=== PATIENT | female | born 2000 | race Caucasian/White ===

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

== ENCOUNTER 2020-12-09 22:28 | Emergency (ER) | payer SELFPAY ==
[~2020-12-09] VITALS: Ht 167 cm; Wt 136.0 kg
[~2020-12-09 22:28] MED LIST changes: +ACHD5005 PO; +AZIT250T12 PO; -AZIT250T5 PO; +IBUP-2185 PO; -IBUP200C75 PO; -TRAM50TA2 PO; +TRM50T PO
[2020-12-09 22:50] VITALS: BP 145/104
--- NOTE | 2020-12-09 23:23 | ED Lower Extremity ---
General Chief Complaint: Trauma-Non Activation Stated Complaint: LEFT KNEE PAIN,FALL Nursing Triage Note: Patient fell in a puddle of coffee at [facility] striking the left knee on the ground Nursing Sepsis Screen: No Definite Risk Source: patient History of Present Illness Date Seen by Provider: Dec 09, 2020 Time Seen by Provider: 22:51 Initial Comments PT ARRIVES VIA POV STATES [facility], LANDING ON LEFT KNEE C/O PAIN IN LEFT KNEE NO OTHER INJURIES FROM THE INCIDENT NO PRIOR INJURY OR PROBLEMS WITH THIS KNEE HAS NOT TAKEN ANYTHING FOR PAIN OR APPLIED ICE, ETC. Location Injury Occurred: [facility] Allergies and Home Medications Allergies Coded Allergies: Penicillins (Verified Allergy, Mild, 08/05/09) Home Medications Azithromycin 250 Mg Tablet, 250 MG PO DAILY Prescribed by: CAIN SILVA on 11/26/16 0315 Hydrocodone Bit/Acetaminophen 1 Each Tablet, 1 EACH PO Q4H PRN for PAIN Prescribed by: MIRIAM CHASE on 03/08/17 1834 Ibuprofen 200 Mg Capsule, 600 MG PO PRN, (Reported) Patient Home Medication List Home Medication List Reviewed: Yes Review of Systems Constitutional: no symptoms reported Musculoskeletal: see HPI Skin: no symptoms reported Psychiatric/Neurological: No Symptoms Reported Past Wudptlr-Rstxpu-Fyrnzk Hx Past Med/Social Hx: Reviewed and Corrections made Patient Social History Alcohol Use: Denies Use Drug of Choice: NONE Smoking Status: Never a Smoker 2nd Hand Smoke Exposure: Yes Recent Infectious Disease Expo: No Recent Hopitalizations: No Immunizations Up To Date Tetanus Booster (TDap): Less than 5yrs PED Vaccines UTD: Yes Seasonal Allergies Seasonal Allergies: No Past Medical History Surgeries: Yes Adenoidectomy, Orthopedic, Tonsillectomy Respiratory: No Cardiac: No Neurological: No Last Menstrual Period: Nov 22, 2020 Reproductive Disorders: No Female Reproductive Disorders: Denies Gastrointestinal: No Musculoskeletal: No Endocrine: Yes (morbid obesity) Diabetes, Non-Insulin dep HEENT: No Cancer: No Psychosocial: No Integumentary: No Blood Disorders: No Adverse Reaction/Blood Tranf: No Family Medical History No Pertinent Family Hx Physical Exam Vital Signs Vital Signs - First Documented 12/09/20 22:50 Temp 36.1 Pulse 111 Resp 18 B/P (MAP) 145/104 (118) Pulse Ox 97 O2 Delivery Room Air Capillary Refill : Less Than 3 Seconds Height, Weight, BMI Height: 5'7.00" Weight: 270lbs. oz. 122.326340bx; 48.00 BMI Method:Stated General Appearance: WD/WN, no apparent distress, obese Cardiovascular: normal peripheral pulses Knees: right knee normal inspection; left knee bone tenderness, left knee pain, left knee soft tissue tenderness, left knee other (DIFFUSE TENDERNESS TO ANTERIOR ASPECT OF LEFT KNEE. NO BRUISING OR EXTERNAL EVIDENCE OF TRAUMA. UNABLE TO DETERMINE IF SWELLING IS PRESENT OR IF THERE IS LIGAMENT LAXITY DUE TO BODY HABITUS AND PAIN. ) Ankles: left ankle normal inspection Feet: left foot normal inspection Neurologic/Tendon: normal sensation, normal motor functions, normal tendon functions Neurologic/Psychiatric: no motor/sensory deficits, alert, normal mood/affect, oriented x 3 Skin: normal color, warm/dry Procedures/Interventions Splinting and Joint Reduction : Bonilla wrap: Yes Immobilizers: 24 inch Knee Progress/Results/Core Measures Results/Orders My Orders Orders - HUANG GABRIEL DO Knee, Left, 3 Views (12/09/20 22:57) Bonilla Bandage (12/09/20 23:20) Knee Immobilizer (12/09/20 23:20) Ibuprofen Tablet (Motrin Tablet) (12/09/20 23:30) Medications Given in ED Current Medications Medications Dose Ordered Sig/Per Route Start Time Stop Time Status Last Admin Dose Admin Ibuprofen 800 mg ONCE ONCE PO 12/09/20 23:30 12/09/20 23:31 DC 12/09/20 23:28 800 MG Vital Signs/I&O 12/09/20 22:50 Temp 36.1 Pulse 111 Resp 18 B/P (MAP) 145/104 (118) Pulse Ox 97 O2 Delivery Room Air Blood Pressure Mean: 118 Departure Impression Primary Impression: Contusion of left knee Disposition: HOME, SELF-CARE Condition: Stable Departure-Patient Inst. Referrals: NO,LOCAL PHYSICIAN (PCP/Family) Primary Care Physician Patient Instructions: Contusion (DC), How to Use an Elastic Bandage, Knee Immobilizer (DC) Add. Discharge Instructions: ICE TO SORE AREA AT 20 MINUTE INTERVALS BONILLA WRAP AND KNEE IMMOBILIZER FOR COMFORT ELEVATE LEG MUCH POSSIBLE TYLENOL 1 GRAM / MOTRIN 800 MG 4 TIMES A DAY NEEDED FOR PAIN FOLLOW UP WITH YOUR DR IN 1 WEEK FOR FURTHER CARE All discharge instructions reviewed with patient and/or family. Voiced understanding. HUANG GABRIEL DO Dec 09, 2020 23:23
--- NOTE | 2020-12-09 23:29 | NUR ---
Bonilla wrap applied to the left knee and knee immobilizer placed on left knee. Patient verbalizes comfort.
[2020-12-09] MEDS ORDERED: IBUPROFEN 800 MG (MOTRIN) TAB PO ONE (23:30)
--- NOTE | 2020-12-10 06:50 | Diagnostic Imaging Report ---
HISTORY: Left knee pain COMPARISON: None TECHNIQUE: 3 views of the left knee FINDINGS: No acute fracture or dislocation is seen in the left knee. Alignment appears normal. Joint spaces are preserved. No significant joint effusion is appreciated. IMPRESSION: 1. No acute osseous abnormality is seen in the left knee. Dictated by: Dictated on workstation # [id number]
== END 2020-12-09 23:42 | disposition home or self-care (01) ==
LOC: EDUNIT# 22:28 → ER 22:30
DX: S80.02XA Contusion of left knee, initial encounter (principal); E66.01 Morbid (severe) obesity due to excess calories; Z88.0 Allergy status to penicillin; Z77.22 Contact with and (suspected) exposure to environmental tobacco smoke (acute) (chronic); Z68.42 Body mass index [BMI] 45.0-49.9, adult; W01.0XXA Fall on same level from slipping, tripping and stumbling without subsequent striking against object, initial encounter
CPT/HCPCS: 73562

== ENCOUNTER 2021-07-02 21:52 | Emergency (ER) | payer SELFPAY ==
[~2021-07-02] VITALS: Ht 167 cm; Wt 142.0 kg
[2021-07-02 22:13] LABS: BILIRUBIN,URINE NEGATIVE (NEGATIVE); CLARITY,URINE SL CLOUDY; COLOR,URINE YELLOW; GLUCOSE, URINE (UA) 3+ (NEGATIVE); KETONES,URINE NEGATIVE (NEGATIVE); LEUKOCYTE ESTERASE ,URINE NEGATIVE (NEGATIVE); NITRITE,URINE NEGATIVE (NEGATIVE); PH,URINE 6.5 (5-9); PROTEIN,URINE NEGATIVE (NEGATIVE)
[2021-07-02 22:18] LABS: BACTERIA,URINE FEW /HPF; WBC,URINE RARE /HPF
[2021-07-02] MEDS ORDERED: ONDANSETRON 4 MG/2 ML (SDV) Z0FRAN IVP ONE (22:45)
[2021-07-02 22:55] LABS: BASOPHILS # (AUTO) 0.1 10^3/uL (0.0-0.1); BASOPHILS % (AUTO) 1 % (0-10); EOSINOPHILS # (AUTO) 0.3 10^3/uL (0.0-0.3); EOSINOPHILS % (AUTO) 2 % (0-10); HEMATOCRIT 44 % (35-52); HEMOGLOBIN 14.5 g/dL (11.5-16.0); LYMPHOCYTES % (AUTO) 33 % (12-44); MEAN CORPUSCULAR HEMOGLOBIN 27 pg (25-34); MEAN CORPUSCULAR HGB CONC 33 g/dL (32-36); MEAN CORPUSCULAR VOLUME 82 fL (80-99); MEAN PLATELET VOLUME 9.7 fL (9.0-12.2); MONOCYTES % (AUTO) 6 % (0-12); NEUTROPHILS # (AUTO) 8.6 10^3/uL (1.8-7.8); NEUTROPHILS % (AUTO) 57 % (42-75); PLATELET COUNT 469 10^3/uL (130-400); WHITE BLOOD COUNT 15.1 10^3/uL (4.3-11.0)
--- NOTE | 2021-07-02 22:59 | ED Abdominal Pain ---
General Chief Complaint: Abdominal/GI Problems Stated Complaint: SIDE PAIN, LOWER BACK PAIN Source of Information: Patient, Family Exam Limitations: No Limitations (ROSA XIE,MED STUDENT) History of Present Illness Date Seen by Provider: Jul 02, 2021 Time Seen by Provider: 21:58 Initial Comments Lauren Youngblood is a 21yo F with PMH of DMII who presents with CC of abdominal pain. She states that last night she was exercising when she noticed a sharp pain located in her right lateral abdomen. She laid down which alleviated the pain, but it was aggravated when she stood up again. She spent most of today resting, but after driving and exiting her car found herself experiencing severe pain while walking. She rates it as 7/10 and has not tried any home treatment. She has never had this type of pain before. She denies V/D, but endorses constipation and nausea. Timing/Duration: 1 Day Severity/Quality: Severe, Sharp Location: RUQ, RLQ Radiation: Back Activities at Onset: Activity Modifying Factors: Worsens With Exercise; Improves With Lying down; Worsens With Movement; Improves With Resting Associated Symptoms: No Chest Pain, No Diaphoresis, No Fever/Chills, No Headache; Nausea/Vomiting (nausea) (ROSA XIE,MED STUDENT) Allergies and Home Medications Allergies Coded Allergies: Penicillins (Verified Allergy, Mild, 08/05/09) Home Medications Azithromycin 250 Mg Tablet, 250 MG PO DAILY Prescribed by: CAIN SILVA on 11/26/16 0315 Hydrocodone Bit/Acetaminophen 1 Each Tablet, 1 EACH PO Q4H PRN for PAIN Prescribed by: MIRIAM CHASE on 03/08/17 1834 Ibuprofen 200 Mg Capsule, 600 MG PO PRN, (Reported) Ondansetron 4 Mg Tab.rapdis, 4 MG SL Q4H PRN for NAUSEA/VOMITING Prescribed by: CAIN SILVA on 07/03/21 0324 Patient Home Medication List Home Medication List Reviewed: Yes (CAIN GAITAN MD) Review of Systems Review of Systems Constitutional: no symptoms reported EENTM: No Symptoms Reported Respiratory: No Symptoms Reported Cardiovascular: No Symptoms Reported Gastrointestinal: See HPI Genitourinary: No Symptoms Reported Musculoskeletal: no symptoms reported Skin: no symptoms reported Psychiatric/Neurological: No Symptoms Reported Endocrine: No Symptoms Reported Hematologic/Lymphatic: No Symptoms Reported (ROSA XIE,PAU STUDENT) Past Oqnsahe-Vrnbjr-Vtpodl Hx Immunizations Up To Date Tetanus Booster (TDap): Less than 5yrs PED Vaccines UTD: Yes (ROSA XIE,PAU STUDENT) Seasonal Allergies Seasonal Allergies: No (ROSA XIE MED STUDENT) Past Medical History Surgeries: Yes Adenoidectomy, Orthopedic, Tonsillectomy Respiratory: No Cardiac: No Neurological: No Reproductive Disorders: No Female Reproductive Disorders: Denies Gastrointestinal: No Musculoskeletal: No Endocrine: Yes (morbid obesity) Diabetes, Non-Insulin dep HEENT: No Cancer: No Psychosocial: No Integumentary: No Blood Disorders: No Adverse Reaction/Blood Tranf: No (ROSA XIE,PAU STUDENT) Family Medical History No Pertinent Family Hx (ROSA XIE,PAU STUDENT) Physical Exam Vital Signs Vital Signs - First Documented 07/02/21 07/03/21 22:08 03:15 Temp 37.0 Pulse 84 Resp 20 B/P (MAP) 142/102 (115) Pulse Ox 97 O2 Delivery Room Air (CAIN GAITAN MD) Vital Signs Capillary Refill : (ROSA XIE,PAU STUDENT) Height/Weight/BMI Height: 5'7.00" Weight: 270lbs. oz. 122.440187tu; 48.00 BMI Method:Stated General Appearance: moderate distress, obese HEENT: PERRL/EOMI Respiratory: lungs clear, normal breath sounds, no respiratory distress Cardiovascular: regular rate, rhythm Gastrointestinal: soft, guarding, tenderness (RUQ/RLQ) Extremities: normal range of motion Back: no CVA tenderness Neurologic/Psychiatric: alert, oriented x 3 Skin: normal color, warm/dry (ROSA XIE,PAU STUDENT) Progress/Results/Core Measures Results/Orders Lab Results Laboratory Tests Test 07/02/21 22:08 07/02/21 22:10 07/02/21 23:08 07/03/21 00:00 Range/Units Urine Color YELLOW Urine Clarity SL CLOUDY Urine pH 6.5 5-9 Urine Specific [place] 1.020 1.016-1.022 Urine Protein NEGATIVE NEGATIVE Urine Glucose (UA) 3+ H NEGATIVE Urine Ketones NEGATIVE NEGATIVE Urine Nitrite NEGATIVE NEGATIVE Urine Bilirubin NEGATIVE NEGATIVE Urine Urobilinogen 0.2 < = 1.0 MG/DL Urine Leukocyte Esterase NEGATIVE NEGATIVE Urine RBC (Auto) NEGATIVE NEGATIVE Urine RBC NONE /HPF Urine WBC RARE /HPF Urine Squamous Epithelial Cells 5-10 /HPF Urine Crystals NONE /LPF Urine Bacteria FEW H /HPF Urine Casts NONE /LPF Urine Mucus NEGATIVE /LPF Urine Culture Indicated NO White Blood Count 15.1 H 4.3-11.0 10^3/uL Red Blood Count 5.32 H 3.80-5.11 10^6/uL Hemoglobin 14.5 11.5-16.0 g/dL Hematocrit 44 35-52 % Mean Corpuscular Volume 82 80-99 fL Mean Corpuscular Hemoglobin 27 25-34 pg Mean Corpuscular Hemoglobin Concent 33 32-36 g/dL Red Cell Distribution Width 13.1 10.0-14.5 % Platelet Count 469 H 130-400 10^3/uL Mean Platelet Volume 9.7 9.0-12.2 fL Immature Granulocyte % (Auto) 1 % Neutrophils (%) (Auto) 57 42-75 % Lymphocytes (%) (Auto) 33 12-44 % Monocytes (%) (Auto) 6 0-12 % Eosinophils (%) (Auto) 2 0-10 % Basophils (%) (Auto) 1 0-10 % Neutrophils # (Auto) 8.6 H 1.8-7.8 10^3/uL Lymphocytes # (Auto) 5.0 H 1.0-4.0 10^3/uL Monocytes # (Auto) 1.0 0.0-1.0 10^3/uL Eosinophils # (Auto) 0.3 0.0-0.3 10^3/uL Basophils # (Auto) 0.1 0.0-0.1 10^3/uL Immature Granulocyte # (Auto) 0.1 0.0-0.1 10^3/uL Neutrophils % (Manual) 63 % Lymphocytes % (Manual) 29 % Monocytes % (Manual) 2 % Eosinophils % (Manual) 2 % Basophils % (Manual) 0 % Band Neutrophils 0 % Reactive Lymphocytes 4 % Blood Morphology Comment NORMAL Sodium Level 137 135-145 MMOL/L Potassium Level 4.2 3.6-5.0 MMOL/L Chloride Level 103 98-107 MMOL/L Carbon Dioxide Level 23 21-32 MMOL/L Anion Gap 11 5-14 MMOL/L Blood Urea Nitrogen 9 7-18 MG/DL Creatinine 0.82 0.60-1.30 MG/DL Estimat Glomerular Filtration Rate 87 BUN/Creatinine Ratio 11 Glucose Level 363 H 70-105 MG/DL Calcium Level 10.3 H 8.5-10.1 MG/DL Corrected Calcium 10.4 H 8.5-10.1 MG/DL Total Bilirubin 0.3 0.1-1.0 MG/DL Aspartate Amino Transf (AST/SGOT) 32 5-34 U/L Alanine Aminotransferase (ALT/SGPT) 46 0-55 U/L Alkaline Phosphatase 100 40-136 U/L C-Reactive Protein High Sensitivity 1.92 H 0.00-0.50 MG/DL Total Protein 7.9 6.4-8.2 GM/DL Albumin 3.9 3.2-4.5 GM/DL Serum Test, Qualitative NEGATIVE NEGATIVE Glucometer 348 H 70-110 MG/DL Lipase 25 8-78 U/L (CAIN GAITAN MD) My Orders Orders - CAIN GAITAN MD Ua Culture If Indicated (07/02/21 21:57) Ondansetron Injection (Zofran Injectio (07/02/21 22:45) Ed Iv/Invasive Line Start (07/02/21 22:49) Cbc With Automated Diff (07/02/21 22:49) Comprehensive Metabolic Panel (07/02/21 22:49) Hs C Reactive Protein (07/02/21 22:49) Hcg,Qualitative Serum (07/02/21 22:49) Fentanyl Inj (Sublimaze Injection) (07/02/21 23:00) Manual Differential (07/02/21 22:10) Ct Abdomen/Pelvis W (07/02/21 23:07) Ns Iv 1000 Ml (Sodium Chloride 0.9%) (07/02/21 23:15) Iohexol Injection (Omnipaque 350 Mg/Ml 1 (07/03/21 00:00) Received Contrast (Hold Metformin- Contr (07/03/21 00:00) Sodium Chloride Flush (Catheter Flush Sy (07/03/21 00:00) Ns (Ivpb) (Sodium Chloride 0.9% Ivpb Bag (07/03/21 00:00) Ketorolac Injection (Toradol Injection) (07/03/21 00:45) Promethazine Injection (Phenergan Injec (8/5/21 00:45) Lipase (07/03/21 02:24) (CAIN GAITAN MD) Medications Given in ED (CAIN GAITAN MD) Vital Signs/I&O 07/02/21 07/03/21 22:08 03:15 Temp 37.0 37.0 Pulse 84 78 Resp 20 20 B/P (MAP) 142/102 (115) 132/68 Pulse Ox 97 94 O2 Delivery Room Air (CAIN GAITAN MD) Departure Impression Primary Impression: Right ovarian cyst Additional Impressions: Nausea Right sided abdominal pain Leukocytosis Qualified Codes: D72.829 - Elevated white blood cell count, unspecified Disposition: 01 HOME, SELF-CARE Condition: Improved Departure-Patient Inst. Decision time for Depature: 03:22 (CAIN GAITAN MD) Referrals: NO,LOCAL PHYSICIAN (PCP/Family) Primary Care Physician Patient Instructions: Ovarian Cysts, Severe Abdominal Pain Add. Discharge Instructions: Drink plenty of clear liquids. Start with clear liquid diet and gradually advance your diet with small quantities of bland food as tolerated. You may take Tylenol (acetaminophen) up to 1000 mg every 6 hours as needed for pain. Add ibuprofen up to 600 mg every 6 hours as needed for additional pain relief. Use Zofran as prescribed for nausea and vomiting. Return to care if you have worsening symptoms, especially if you develop fevers over 100 degrees. Call with questions or concerns. All discharge instructions reviewed with patient and/or family. Voiced understanding. Scripts Ondansetron (Ondansetron Odt) 4 Mg Tab.rapdis 4 MG SL Q4H PRN for NAUSEA/VOMITING, #10 TAB Prov: CAIN GAITAN MD 07/03/21 Medical Student Attestation and Attending Note: I have personally interviewed and examined this patient along with Alan Xie MS4. I have reviewed student documentation including history, physical, and assessments. I agree with the documentation except where otherwise noted. Exam: General: Alert, oriented, no acute distress, well developed, obese HEENT: Normocephalic and atraumatic Heart: Regular rate and rhythm without murmur Lungs: Clear to auscultation bilaterally with normal effort Abdomen: Soft, ttp in the right abdomen with tenderness to percussion and positive Rovsing, nondistended, normal bowel sounds Neuropsych: Alert, oriented, no focal deficits Skin: Warm and dry without rashes Pain and nausea were treated. She received IV hydration. Labs revealed leukocytosis. In the context of leukocytosis and peritoneal signs, evaluation for appendicitis considered important. Risks and benefits of CT discussed with patient and mother. They agreed and CT was obtained. A large right ovarian cyst was discovered on CT. Discharge instructions were reviewed along with the expected course of this pathology. (CAIN GAITAN MD) ROSA XIE,MED STUDENT Jul 02, 2021 22:59 CAIN GAITAN MD Jul 03, 2021 03:24
[2021-07-02] MEDS ORDERED: fentaNYL INJ 100 MCG/2 ML AMP IVP ONE (23:00)
[2021-07-02 23:09] LABS: ALBUMIN 3.9 GM/DL (3.2-4.5); BILIRUBIN,TOTAL 0.3 MG/DL (0.1-1.0); CALCIUM 10.3 MG/DL (8.5-10.1); CREATININE SERUM 0.82 MG/DL (0.60-1.30); POTASSIUM 4.2 MMOL/L (3.6-5.0); TOTAL PROTEIN 7.9 GM/DL (6.4-8.2)
[2021-07-02 23:13] LABS: BAND NEUTROPHILS 0 %; BASOPHILS % (MANUAL) 0 %; EOSINOPHILS % (MANUAL) 2 %; LYMPHOCYTES % (MANUAL) 29 %; MONOCYTES % (MANUAL) 2 %; NEUTROPHILS % (MANUAL) 63 %; RBC MORPH NORMAL; REACTIVE LYMPHOCYTES 4 %
[2021-07-02] MEDS ORDERED: NS IV 1000 ML 1,000 ML IV SCH (23:15)
[2021-07-03] MEDS ORDERED: HOLD METFORMIN - RECEIVED CONTRAST 20 ML VIAL IV SCH
[2021-07-03] MEDS ORDERED: CATHETER FLUSH 10 ML SYR IV PRN
[2021-07-03] MEDS ORDERED: NS 100 ML (IVPB) BAG IV ONE
[2021-07-03] MEDS ORDERED: IOHEXOL 350 MG/ML 100 ML (OMNIPAQUE 350) VIAL IV ONE
[2021-07-03] MEDS ORDERED: PROMETHAZINE INJ 25 MG/ML (PHENERGAN) AMP IVP ONE (00:45)
[2021-07-03] MEDS ORDERED: KETOROLAC 30 MG/ML VIAL IVP ONE (00:45)
[2021-07-03 03:15] VITALS: BP 132/68
[2021-07-03] MEDS ORDERED: ONDA4TAB11 SL (03:24)
--- NOTE | 2021-07-03 07:54 | Diagnostic Imaging Report ---
PROCEDURE: CT abdomen and pelvis with contrast. TECHNIQUE: Multiple contiguous axial images were obtained through the abdomen and pelvis after administration of intravenous contrast. Auto Exposure Controls were utilized during the CT exam to meet ALARA standards for radiation dose reduction. All CT scans use one or more of the following dose optimizing techniques: automated exposure control, MA and/or KvP adjustment based on patient size and exam type or iterative reconstruction. INDICATION: Right flank pain x1 day Lung bases are clear. There is fatty infiltration of liver. The gallbladder is decompressed. The portal vein is patent. Common duct is not dilated. Pancreas appears normal. Spleen is not enlarged. Adrenals appear normal. Kidneys appear normal. The appendix appears normal. Small bowel is not dilated. There is large amount stool in the colon. Urinary bladder is normal. Uterus is normal. There is a 7 cm right ovarian cyst. Left adnexa unremarkable. There is no intraperitoneal free air or free fluid. IMPRESSION: Hepatic steatosis. 7 cm right ovarian cyst. I agree with preliminary interpretation. Dictated by: Dictated on workstation # [id number]
== END 2021-07-03 04:04 | disposition home or self-care (01) ==
LOC: EDUNIT# 21:52 → ER 21:54
DX: N83.201 Unspecified ovarian cyst, right side (principal); R11.0 Nausea; D72.829 Elevated white blood cell count, unspecified; E66.01 Morbid (severe) obesity due to excess calories; E11.9 Type 2 diabetes mellitus without complications; Z68.42 Body mass index [BMI] 45.0-49.9, adult
CPT/HCPCS: 36415; 74177; 80053; 81000; 82947; 83690; 84703; 85007; 85027; 86141

== ENCOUNTER 2021-07-07 18:09 | Emergency (ER) | payer SELFPAY ==
[~2021-07-07] VITALS: Ht 165.1 cm; Wt 102.0 kg
[~2021-07-07 18:09] MED LIST changes: +ONDA4TAB11 SL
[2021-07-07 18:17] VITALS: BP 164/108
[2021-07-07] MEDS ORDERED: IBUPROFEN 800 MG (MOTRIN) TAB PO STA (18:26)
--- NOTE | 2021-07-07 18:30 | ED Lower Extremity ---
General Stated Complaint: L ANKLE/FOOT INJ History of Present Illness Date Seen by Provider: Jul 07, 2021 Time Seen by Provider: 18:15 Initial Comments 21-year-old female presents for left foot and ankle pain. She stepped down on a pallet and her foot went through causing her to twist her foot and ankle. She is having pain along the lateral aspect of her left foot and up into the ankle. She reports previous injury to her left ankle which required a plate and screw in 2017. Onset: just prior to arrival Pain/Injury Location: left foot, left ankle Method of Injury: twisted, other (stepped down on a pallett and her foot went through) Modifying Factors: Improves With Rest Allergies and Home Medications Allergies Coded Allergies: Penicillins (Verified Allergy, Mild, 08/05/09) Home Medications Azithromycin 250 Mg Tablet, 250 MG PO DAILY Prescribed by: CAIN SILVA on 11/26/16 0315 Hydrocodone Bit/Acetaminophen 1 Each Tablet, 1 EACH PO Q4H PRN for PAIN Prescribed by: MIRIAM CHASE on 03/08/17 1834 Ibuprofen 200 Mg Capsule, 600 MG PO PRN, (Reported) Ondansetron 4 Mg Tab.rapdis, 4 MG SL Q4H PRN for NAUSEA/VOMITING Prescribed by: CAIN SILVA on 07/03/21 0324 Patient Home Medication List Home Medication List Reviewed: Yes Review of Systems Constitutional: no symptoms reported, see HPI Musculoskeletal: see HPI, joint pain (Left ankle and foot) All Other Systems Reviewed Negative Unless Noted: Yes Past Sxdndrd-Hqaqpj-Rkdaaa Hx Immunizations Up To Date Tetanus Booster (TDap): Less than 5yrs PED Vaccines UTD: Yes Seasonal Allergies Seasonal Allergies: No Past Medical History Surgeries: Yes Adenoidectomy, Orthopedic, Tonsillectomy Respiratory: No Cardiac: No Neurological: No Reproductive Disorders: No Female Reproductive Disorders: Denies Gastrointestinal: No Musculoskeletal: No Endocrine: Yes (morbid obesity) Diabetes, Non-Insulin dep HEENT: No Cancer: No Psychosocial: No Integumentary: No Blood Disorders: No Adverse Reaction/Blood Tranf: No Family Medical History Reviewed Nursing Family Hx No Pertinent Family Hx Physical Exam Vital Signs Vital Signs - First Documented 07/07/21 18:17 Pulse 99 Resp 20 B/P (MAP) 164/108 (126) Pulse Ox 99 O2 Delivery Room Air Capillary Refill : Height, Weight, BMI Height: 5'7.00" Weight: 270lbs. oz. 122.527321bm; 50.00 BMI Method:Stated General Appearance: WD/WN, no apparent distress, obese Cardiovascular: normal peripheral pulses, regular rate, rhythm Respiratory: chest non-tender, lungs clear, normal breath sounds Gastrointestinal: normal bowel sounds, non tender, soft Ankles: left ankle normal range of motion, left ankle bone tenderness, left ankle pain, left ankle soft tissue tenderness Feet: left foot normal inspection, left foot normal range of motion, left foot abrasions/lacerations (Superficial, lateral aspect), left foot bone tenderness (Fifth metatarsal), left foot soft tissue tenderness Neurologic/Tendon: normal sensation, normal motor functions, normal tendon functions Neurologic/Psychiatric: no motor/sensory deficits, alert, normal mood/affect, oriented x 3 Skin: normal color, warm/dry Progress/Results/Core Measures Results/Orders My Orders Orders - JOHNNA CHAHAL Foot, Left, 3 Views (07/07/21 18:26) Ankle, Left, 3 Views (07/07/21 18:26) Ibuprofen Tablet (Motrin Tablet) (07/07/21 18:26) Vital Signs/I&O 07/07/21 18:17 Pulse 99 Resp 20 B/P (MAP) 164/108 (126) Pulse Ox 99 O2 Delivery Room Air Progress Progress Note : Time: 18:15 Progress Note Patient seen and evaluated, will obtain x-ray of the left ankle and foot. Ice pack in place. Ibuprofen 800 mg for pain. 0 x-ray show no acute fractures, reviewed with patient. Abrasion to lateral aspect of the left foot cleaned with saline and triple antibiotic with Band-Aid applied. Bonilla wrap to left ankle and foot. Discharge instructions and return precautions reviewed with the patient and her mother. All questions answered. Diagnostic Imaging Diagonstic Imaging: Xray Plain Films/CT/US/NM/MRI: other (foot) Comments NAME: JOSE ESTRADA [facility] REC#: [id number] PT STATUS: REG ER : 2000 PHYSICIAN: JOHNNA CHAHAL ADMIT DATE: 07/07/21/ER Signed Date of Exam:07/07/21 FOOT, LEFT, 3 VIEWS INDICATION: Left foot injury Three views of the left foot show no fracture, dislocation or other acute abnormalities. IMPRESSION: Negative left foot. Dictated by: Dictated on workstation # [id number] Dict: 07/07/211841 Trans: 07/07/211846 [facility] [id number] Interpreted by: SHANNON MTZ MD Electronically signed by: SHANNON MTZ MD 07/07/211846 Diagonstic Imaging: Xray Plain Films/CT/US/NM/MRI: ankle Comments NAME: JOSE ESTRADA [facility] REC#: [id number] PT STATUS: REG ER : 2000 PHYSICIAN: JOHNNA CHAHAL ADMIT DATE: 07/07/21/ER Signed Date of Exam:07/07/21 FOOT, LEFT, 3 VIEWS INDICATION: Left foot injury Three views of the left foot show no fracture, dislocation or other acute abnormalities. IMPRESSION: Negative left foot. Dictated by: Dictated on workstation # [id number] Dict: 07/07/211841 Trans: 07/07/211846 [facility] [id number] Interpreted by: SHANNON MTZ MD Electronically signed by: SHANNON MTZ MD 07/07/211846 Reviewed: Reviewed by Me Departure Impression Primary Impression: Sprain or strain of foot Additional Impression: Contusion of foot Qualified Codes: S90.32XA - Contusion of left foot, initial encounter Disposition: 01 HOME, SELF-CARE Condition: Improved Departure-Patient Inst. Decision time for Depature: 19:00 Referrals: NO,LOCAL PHYSICIAN (PCP/Family) Primary Care Physician Patient Instructions: Ankle Sprain (DC), Contusion (DC) Add. Discharge Instructions: Ice and elevate left ankle and foot. Alternate between ibuprofen 600 mg and Tylenol 650 mg every 4 hours. Use Bonilla wrap. Clean abrasion to left foot with soap and water and apply triple antibiotic ointment 3 times daily. Progress activity as tolerated. Follow-up with your primary care provider if symptoms are not improving or worsen. Return to the emergency department for new, urgent healthcare needs. JOHNNA CHAHAL Jul 07, 2021 18:30
--- NOTE | 2021-07-07 18:44 | Diagnostic Imaging Report ---
INDICATION: Left ankle injury. Three views of the left ankle show postoperative changes from internal fixation of the lateral malleolus and distal tibiofibular joint. The screw crossing the distal joint is fractured and there is lucency suggesting there has been fracture for an extended period of time. The fibula appears to be well-healed. There is no acute fracture seen. IMPRESSION: Postoperative changes from internal fixation of the ankle. No acute abnormality is seen. Dictated by: Dictated on workstation # [id number]
--- NOTE | 2021-07-07 18:45 | Diagnostic Imaging Report ---
INDICATION: Left foot injury Three views of the left foot show no fracture, dislocation or other acute abnormalities. IMPRESSION: Negative left foot. Dictated by: Dictated on workstation # [id number]
== END 2021-07-07 19:10 | disposition home or self-care (01) ==
LOC: EDUNIT# 18:09 → ER 18:11
DX: S93.602A Unspecified sprain of left foot, initial encounter (principal); E11.9 Type 2 diabetes mellitus without complications; E66.01 Morbid (severe) obesity due to excess calories; Z68.43 Body mass index [BMI] 50.0-59.9, adult; X50.1XXA Overexertion from prolonged static or awkward postures, initial encounter
CPT/HCPCS: 73610; 73630

== ENCOUNTER 2022-03-14 23:57 | Observation (INO) | payer SELFPAY ==
[~2022-03-14] VITALS: Ht 165 cm; Wt 153.2 kg
[2022-03-15] VITALS (11 sets, daily range): BP systolic 120–150; BP diastolic 71–90
[2022-03-15] MEDS ORDERED: EMPA10TA PO (00:23)
[2022-03-15] MEDS ORDERED: ONDANSETRON 4 MG/2 ML (SDV) Z0FRAN IVP STA (00:35)
[2022-03-15] MEDS ORDERED: DICYCLOMINE 10 MG/ML (BENTYL) 2 ML AMP IM STA (00:35)
[2022-03-15] MEDS ORDERED: NS IV 1000 ML 1,000 ML IV STA (00:35)
[2022-03-15] MEDS ORDERED: fentaNYL INJ 100 MCG/2 ML AMP IVP STA (00:35)
--- NOTE | 2022-03-15 00:39 | ED Abdominal Pain ---
General Chief Complaint: Abdominal/GI Problems Stated Complaint: 4-5 WEEKS OF DIARRHEA,ABD PAIN,UPPER BACK PAIN Nursing Triage Note: c/o intermittant epigastric abdominal pain/nausea/diarrhea x3-4 weeks. Source of Information: Patient Exam Limitations: No Limitations History of Present Illness Date Seen by Provider: Mar 15, 2022 Time Seen by Provider: 00:26 Initial Comments Patient is a 22-year-old female who presents to the emergency department with a chief complaint of upper abdominal pain, nausea, vomiting and diarrhea. Patient states that her symptoms have been coming and going for at least the last 4 weeks. Her primary care physician initially attributed to metformin, she discontinued taking this about 2 weeks ago. Ever since that time every time she eats she has exacerbations of pain. The pain became even worse tonight after 630 around dinnertime when she ate pizza. She has spent all evening in the bathroom with diarrhea. She denies fevers or chills. No burning with urination. No abnormal vaginal discharge. She just finished her menstrual cycle. She denies black or bloody stools. Mom has a history of having her gallbladder out as well as her grandmother. Nothing makes the pain any better or any worse. She has not taken any pain medications since the onset of pain. Dinner was at 630, she has had nothing to eat or drink since that time All other review of systems reviewed and negative except as stated. Timing/Duration: 4-6 Hours Severity/Quality: Severe, Aching, Cramping, Sharp Location: RUQ, Epigastric Radiation: Back (upper) Activities at Onset: Other (food) Associated Symptoms: Back Pain, Nausea/Vomiting Allergies and Home Medications Allergies Coded Allergies: Penicillins (Verified Allergy, Mild, 08/05/09) Patient Home Medication List Home Medication List Reviewed: Yes Empagliflozin (Jardiance) 10 Mg Tablet, Unknown Dose PO, (Reported) Entered as Reported by: BABAK LI on 03/15/22 0023 Last Action: New Order Discontinued Medications Azithromycin (Azithromycin) 250 Mg Tablet, 250 MG PO DAILY Discontinued Reason: No Longer Taking Prescribed by: CAIN SILVA on 11/26/16 0315 Last Action: Discontinued Hydrocodone Bit/Acetaminophen (Lortab 5 Mg Tablet) 1 Each Tablet, 1 EACH PO Q4H PRN for PAIN Discontinued Reason: No Longer Taking Prescribed by: MIRIAM CHASE on 03/08/17 1834 Last Action: Discontinued Ibuprofen (Ibuprofen) 200 Mg Capsule, 600 MG PO PRN, (Reported) Discontinued Reason: No Longer Taking Entered as Reported by: JOHNNA BACON on 11/26/16 0014 Last Action: Discontinued Ondansetron (Ondansetron Odt) 4 Mg Tab.rapdis, 4 MG SL Q4H PRN for NAUSEA/VOMITING Discontinued Reason: No Longer Taking Prescribed by: CAIN SILVA on 07/03/21 0324 Last Action: Discontinued Review of Systems Review of Systems Constitutional: see HPI EENTM: No Symptoms Reported Respiratory: No Symptoms Reported Cardiovascular: No Symptoms Reported Gastrointestinal: Abdominal Pain, Diarrhea, Nausea, Vomiting Genitourinary: No Symptoms Reported Musculoskeletal: back pain (upper) Skin: no symptoms reported All Other Systems Reviewed Negative Unless Noted: Yes Past Lvdnhff-Mesjte-Cbrnct Hx Patient Social History Tobacco Use?: No Substance use?: No Alcohol Use?: No Pt feels they are or have been: No Immunizations Up To Date Tetanus Booster (TDap): Less than 5yrs PED Vaccines UTD: Yes Seasonal Allergies Seasonal Allergies: No Past Medical History Surgery/Hospitalization HX: appy, left ankle, t/a, niddm Surgeries: Yes Adenoidectomy, Orthopedic, Tonsillectomy Respiratory: No Cardiac: No Neurological: No Reproductive Disorders: No Female Reproductive Disorders: Denies Gastrointestinal: No Musculoskeletal: No Endocrine: Yes (morbid obesity) Diabetes, Non-Insulin dep HEENT: No Cancer: No Psychosocial: No Integumentary: No Blood Disorders: No Adverse Reaction/Blood Tranf: No Family Medical History No Pertinent Family Hx Physical Exam Vital Signs Vital Signs - First Documented 03/15/22 00:17 Temp 36.1 Pulse 104 Resp 18 B/P (MAP) 162/117 (132) Pulse Ox 98 O2 Delivery Room Air Capillary Refill : Less Than 3 Seconds Height/Weight/BMI Height: 5'7.00" Weight: 270lbs. oz. 122.864440wk; 53.00 BMI Method:Stated General Appearance: WD/WN, moderate distress (tearful, appears to be in pain) HEENT: PERRL/EOMI Respiratory: lungs clear, normal breath sounds, no respiratory distress, no accessory muscle use Cardiovascular: regular rate, rhythm, other (distal pulses intact) Gastrointestinal: soft, tenderness (significant tenderness epigastric and RUQ - positive Paez's sign; no rebound, no involuntary guarding. quiet bowel sounds), other (morbid obesity) Extremities: normal inspection Neurologic/Psychiatric: alert, normal mood/affect, oriented x 3 Skin: normal color, warm/dry Progress/Results/Core Measures Results/Orders Lab Results Laboratory Tests Test 03/15/22 00:43 Range/Units White Blood Count 13.7 H 4.3-11.0 10^3/uL Red Blood Count 5.21 H 3.80-5.11 10^6/uL Hemoglobin 13.7 11.5-16.0 g/dL Hematocrit 43 35-52 % Mean Corpuscular Volume 82 80-99 fL Mean Corpuscular Hemoglobin 26 25-34 pg Mean Corpuscular Hemoglobin Concent 32 32-36 g/dL Red Cell Distribution Width 13.8 10.0-14.5 % Platelet Count 450 H 130-400 10^3/uL Mean Platelet Volume 8.8 L 9.0-12.2 fL Immature Granulocyte % (Auto) 1 % Neutrophils (%) (Auto) 67 42-75 % Lymphocytes (%) (Auto) 23 12-44 % Monocytes (%) (Auto) 6 0-12 % Eosinophils (%) (Auto) 3 0-10 % Basophils (%) (Auto) 0 0-10 % Neutrophils # (Auto) 9.2 H 1.8-7.8 10^3/uL Lymphocytes # (Auto) 3.2 1.0-4.0 10^3/uL Monocytes # (Auto) 0.8 0.0-1.0 10^3/uL Eosinophils # (Auto) 0.4 H 0.0-0.3 10^3/uL Basophils # (Auto) 0.0 0.0-0.1 10^3/uL Immature Granulocyte # (Auto) 0.1 0.0-0.1 10^3/uL Sodium Level 138 135-145 MMOL/L Potassium Level 3.6 3.6-5.0 MMOL/L Chloride Level 104 98-107 MMOL/L Carbon Dioxide Level 21 21-32 MMOL/L Anion Gap 13 5-14 MMOL/L Blood Urea Nitrogen 8 7-18 MG/DL Creatinine 0.76 0.60-1.30 MG/DL Estimat Glomerular Filtration Rate 113 BUN/Creatinine Ratio 11 Glucose Level 181 H 70-105 MG/DL Calcium Level 9.1 8.5-10.1 MG/DL Corrected Calcium 9.1 8.5-10.1 MG/DL Total Bilirubin 0.4 0.1-1.0 MG/DL Aspartate Amino Transf (AST/SGOT) 29 5-34 U/L Alanine Aminotransferase (ALT/SGPT) 32 0-55 U/L Alkaline Phosphatase 83 40-136 U/L Total Protein 7.2 6.4-8.2 GM/DL Albumin 4.0 3.2-4.5 GM/DL Lipase 24 8-78 U/L My Orders Orders - ASTON GARZA MD Ed Iv/Invasive Line Start (03/15/22 00:35) Cbc With Automated Diff (03/15/22 00:35) Comprehensive Metabolic Panel (03/15/22 00:35) Lipase (03/15/22 00:35) Urine Bedside (03/15/22 00:35) Dicyclomine Injection (Bentyl Injection) (03/15/22 00:35) Ns Iv 1000 Ml (Sodium Chloride 0.9%) (03/15/22 00:35) Ondansetron Injection (Zofran Injectio (03/15/22 00:35) Fentanyl Inj (Sublimaze Injection) (03/15/22 00:35) Vital Signs/I&O 03/15/22 00:17 Temp 36.1 Pulse 104 Resp 18 B/P (MAP) 162/117 (132) Pulse Ox 98 O2 Delivery Room Air Blood Pressure Mean: 132 Progress Progress Note : Time: 01:33 Progress Note Reevaluated, still has pretty significant pain although she is sleepy from the medications. Still very tender in the epigastrium and right upper quadrant. Feels like she still going to vomit. Discussed the case with Dr. Sebastian, he is agreeable to admission with gallbladder ultrasound this morning. We will keep her on IV fluids, pain medicine. N.p.o. status. Departure Communication (Admissions) Time/Spoke to Admitting Phy: 01:[address] Sebastian - admit to him Impression Primary Impression: Abdominal pain Qualified Codes: R10.11 - Right upper quadrant pain Additional Impressions: Biliary colic Diabetes Qualified Codes: E13.69 - Other specified diabetes mellitus with other specified complication Disposition: ADMITTED INPATIENT Condition: Stable Admissions Decision to Admit Reason: Admit from ER (General) Decision to Admit/Date: Mar 15, 2022 Time/Decision to Admit Time: 01:35 Departure-Patient Inst. Referrals: [facility] (PCP/Family) Primary Care Physician ASTON GARZA MD Mar 15, 2022 00:39
[2022-03-15 00:56] LABS: BASOPHILS % (AUTO) 0 % (0-10); EOSINOPHILS # (AUTO) 0.4 10^3/uL (0.0-0.3); EOSINOPHILS % (AUTO) 3 % (0-10); HEMATOCRIT 43 % (35-52); HEMOGLOBIN 13.7 g/dL (11.5-16.0); LYMPHOCYTES # (AUTO) 3.2 10^3/uL (1.0-4.0); LYMPHOCYTES % (AUTO) 23 % (12-44); MEAN CORPUSCULAR HEMOGLOBIN 26 pg (25-34); MEAN CORPUSCULAR HGB CONC 32 g/dL (32-36); MEAN CORPUSCULAR VOLUME 82 fL (80-99); MEAN PLATELET VOLUME 8.8 fL (9.0-12.2); MONOCYTES # (AUTO) 0.8 10^3/uL (0.0-1.0); MONOCYTES % (AUTO) 6 % (0-12); NEUTROPHILS # (AUTO) 9.2 10^3/uL (1.8-7.8); NEUTROPHILS % (AUTO) 67 % (42-75); PLATELET COUNT 450 10^3/uL (130-400); WHITE BLOOD COUNT 13.7 10^3/uL (4.3-11.0)
[2022-03-15 01:05] LABS: POTASSIUM 3.6 MMOL/L (3.6-5.0)
[2022-03-15 01:06] LABS: CALCIUM 9.1 MG/DL (8.5-10.1)
[2022-03-15 01:07] LABS: TOTAL PROTEIN 7.2 GM/DL (6.4-8.2)
[2022-03-15 01:09] LABS: BILIRUBIN,TOTAL 0.4 MG/DL (0.1-1.0)
[2022-03-15 01:11] LABS: CREATININE SERUM 0.76 MG/DL (0.60-1.30)
[2022-03-15] MEDS ORDERED: NS IV 1000 ML 1,000 ML IV SCH (01:45)
[2022-03-15] MEDS ORDERED: PROMETHAZINE INJ 25 MG/ML (PHENERGAN) AMP IVP ONE (01:45)
[2022-03-15] MEDS ORDERED: NS IV 1000 ML 1,000 ML ONE (02:17)
[2022-03-15] MEDS ORDERED: fentaNYL INJ 100 MCG/2 ML AMP IV PRN (02:30)
[2022-03-15] MEDS ORDERED: ONDANSETRON 4 MG/2 ML (SDV) Z0FRAN IV PRN (02:30)
[2022-03-15] MEDS: NS IV 1000 ML 1,000 ML IV SCH ×3 (02:30→18:32)
--- NOTE | 2022-03-15 11:48 | Consultation - Surgery ---
JOANA ASHLEY 03/15/22 1148: History of Present Illness History of Present Illness Patient Consulted On(mike/time) 03/15/22 11:42 Date Seen by Provider: Mar 15, 2022 Time Seen by Provider: 10:30 Reason for Visit: RUQ pain, Pain after greasy foods History of Present Illness Patient is a 22 year old female that presented to [facility] ER last night with complaints of Epigastric pain/RUQ pain that radiated to her back. Patient stated that this has been an ongoing issue for her for about five weeks that has progressively been getting worse. Stated her episode yesterday started after eating some pizza in the afternoon. This led to her having some stabbing pain in her epigastric region that radiated to her back. Patient has also been having issues with diarrhea, belching, bloating, nausea, vomiting, and diaphoresis. She states that eating fatty foods make it worse. She has tried to take pepcid for her pain but it doesn't help. Patient states her pain yesterday at its worse was an 8/10. She states she is still having breakthrough pain today, but it is better than yesterday. Patient had gallbladder ultrasound ordered for this morning, but we are still awaiting for it to be done. Allergies and Home Medications Allergies Coded Allergies: Penicillins (Verified Allergy, Mild, 08/05/09) Patient Home Medication List Empagliflozin (Jardiance) 10 Mg Tablet, Unknown Dose PO, (Reported) Entered as Reported by: BABAK LI on 03/15/22 0023 Last Action: Reviewed Discontinued Medications Azithromycin (Azithromycin) 250 Mg Tablet, 250 MG PO DAILY Discontinued Reason: No Longer Taking Prescribed by: CAIN SILVA on 11/26/16 0315 Last Action: Discontinued Hydrocodone Bit/Acetaminophen (Lortab 5 Mg Tablet) 1 Each Tablet, 1 EACH PO Q4H PRN for PAIN Discontinued Reason: No Longer Taking Prescribed by: MIRIAM CHASE on 03/08/17 1834 Last Action: Discontinued Ibuprofen (Ibuprofen) 200 Mg Capsule, 600 MG PO PRN, (Reported) Discontinued Reason: No Longer Taking Entered as Reported by: JOHNNA BACON on 11/26/16 0014 Last Action: Discontinued Ondansetron (Ondansetron Odt) 4 Mg Tab.rapdis, 4 MG SL Q4H PRN for NAUSEA/VOMITING Discontinued Reason: No Longer Taking Prescribed by: CAIN SILVA on 07/03/21 0324 Last Action: Discontinued Past Vholqjd-Buerfh-Hsfijm Hx Patient Social History Drug of Choice: NONE Smoking Status: Never a Smoker 2nd Hand Smoke Exposure: Yes Recent Hopitalizations: No Alcohol Use?: No Have you traveled recently?: No Immunizations Up To Date Tetanus Booster (TDap): Less than 5yrs PED Vaccines UTD: Yes Seasonal Allergies Seasonal Allergies: No Surgeries History of Surgeries: Yes Surgeries: Adenoidectomy, Orthopedic (L ankle repair), Tonsillectomy Respiratory History of Respiratory Disorde: No Cardiovascular History of Cardiac Disorders: No Neurological History of Neurological Disord: No Reproductive System Hx Reproductive Disorders: No Female Reproductive Disorders: Denies Gastrointestinal History of Gastrointestinal Di: No Musculoskeletal History of Musculoskeletal Dis: No Endocrine History of Endocrine Disorders: Yes (morbid obesity) Endocrine Disorders: Diabetes, Non-Insulin dep HEENT History of HEENT Disorders: No Cancer History of Cancer: No Psychosocial History of Psychiatric Problem: No Integumentary History of Skin or Integumenta: No Blood Transfusions History of Blood Disorders: No Adverse Reaction to a Blood Tr: No Family Medical History Significant Family History: Heart Disease, Cancer, Diabetes, Hypertension, Renal Disease Review of Systems-General Constitutional: No chills; diaphoresis EENTM: No blurred vision, No double vision, No eye pain Respiratory: No cough, No dyspnea on exertion Cardiovascular: No chest pain, No palpitations Gastrointestinal: RUQ, abdominal pain (RUQ), diarrhea, nausea, vomiting, other (epigastric pain; pain radiates to back) Genitourinary: No discharge, No dysuria Psychiatric/Neurological: Headache Physical Exam-General Problems Physical Exam Vital Signs Vital Signs - First Documented 03/15/22 00:17 Temp 36.1 Pulse 104 Resp 18 B/P (MAP) 162/117 (132) Pulse Ox 98 O2 Delivery Room Air Capillary Refill : Less Than 3 Seconds General Appearance: mild distress, obese Neck: supple Respiratory: chest non-tender, lungs clear, normal breath sounds (anterior posts only), no respiratory distress, no accessory muscle use Cardiovascular: no murmur, tachycardia Gastrointestinal: other (Deferred, patient states her abdomen is very tender to RUQ and she didn't want to me to examine it , I asked if she would rather wait for Dr. Wayne to do an exam, she said yes. ) Rectal: deferred Extremities: no pedal edema, no calf tenderness, normal capillary refill Neurologic/Psychiatric: alert, normal mood/affect, oriented x 3 Skin: normal color, diaphoresis (sweat beads on forehead and face) Data Review Labs Laboratory Tests 03/15/22 00:43: White Blood Count 13.7H, Red Blood Count 5.21H, Hemoglobin 13.7, Hematocrit 43, Mean Corpuscular Volume 82, Mean Corpuscular Hemoglobin 26, Mean Corpuscular Hemoglobin Concent 32, Red Cell Distribution Width 13.8, Platelet Count 450H, Mean Platelet Volume 8.8L, Immature Granulocyte % (Auto) 1, Neutrophils (%) (Auto) 67, Lymphocytes (%) (Auto) 23, Monocytes (%) (Auto) 6, Eosinophils (%) (Auto) 3, Basophils (%) (Auto) 0, Neutrophils # (Auto) 9.2H, Lymphocytes # (Auto) 3.2, Monocytes # (Auto) 0.8, Eosinophils # (Auto) 0.4H, Basophils # (Auto) 0.0, Immature Granulocyte # (Auto) 0.1, Sodium Level 138, Potassium Level 3.6, Chloride Level 104, Carbon Dioxide Level 21, Anion Gap 13, Blood Urea Nitrogen 8, Creatinine 0.76, Estimat Glomerular Filtration Rate 113, BUN/Creatinine Ratio 11, Glucose Level 181H, Calcium Level 9.1, Corrected Calcium 9.1, Total Bilirubin 0.4, Aspartate Amino Transf (AST/SGOT) 29, Alanine Aminotransferase (ALT/SGPT) 32, Alkaline Phosphatase 83, Total Protein 7.2, Albumin 4.0, Lipase 24 03/15/22 05:37: Glucometer 121H Assessment/Plan Assessment/Plan Admission Diagonsis Abdominal pain suspicious for cholecystitis Assessment/Plan Abdominal pain suspicious for cholecystitis Nausea and Vomiting Diarrhea Leukocytosis Tachycardia Diabetes mellitus, non-insulin dependent Plan Plan for surgery today, Laparoscopic cholecystectomy with fluoroscopic cholangiography, with possible open and all indicated procedures. Still awaiting gall bladder US, but given patient's clinical picture, I think Cholecystitis to be most likely pathology. When attempting to discuss possible options with patient and her mother, they stated they wished to move forward with surgery if Dr. Wayne thought it was an option at all. Patient's mother asked if patient's usually go home after the surgery and I told her that usually patient's due unless there is a reason to keep them. I told her that we would need to see how her pain was after the surgery and if there were any pharmacies open today for them to bean picker their pain medications. JOHN WAYNE DO 03/15/22 1407: History of Present Illness History of Present Illness Time Seen by Provider: 13:11 History of Present Illness Surrgery asked to consult regarding RUQ pain. When I saw pt she was laying in bed, still having severe pain. Pain is RUQ and radiates into her back. She states she just wants to do anything to stop the pain. Pain has come back to almost as bad as it was yesterday. This has been going on for 5 weeks, almost always associated with fatty foods. Allergies and Home Medications Allergies Coded Allergies: Penicillins (Verified Allergy, Mild, 08/05/09) Patient Home Medication List Home Medication List Reviewed: Yes Empagliflozin (Jardiance) 10 Mg Tablet, Unknown Dose PO, (Reported) Entered as Reported by: BABAK LI on 03/15/22 0023 Last Action: Reviewed Discontinued Medications Azithromycin (Azithromycin) 250 Mg Tablet, 250 MG PO DAILY Discontinued Reason: No Longer Taking Prescribed by: CAIN SILVA on 11/26/16 0315 Last Action: Discontinued Hydrocodone Bit/Acetaminophen (Lortab 5 Mg Tablet) 1 Each Tablet, 1 EACH PO Q4H PRN for PAIN Discontinued Reason: No Longer Taking Prescribed by: MIRIAM CHASE on 03/08/17 1834 Last Action: Discontinued Ibuprofen (Ibuprofen) 200 Mg Capsule, 600 MG PO PRN, (Reported) Discontinued Reason: No Longer Taking Entered as Reported by: JOHNNA BACON on 11/26/16 0014 Last Action: Discontinued Ondansetron (Ondansetron Odt) 4 Mg Tab.rapdis, 4 MG SL Q4H PRN for NAUSEA/VOMITING Discontinued Reason: No Longer Taking Prescribed by: CAIN SILVA on 07/03/21 0324 Last Action: Discontinued Past Apgozdt-Baqnqi-Hhwxax Hx Patient Social History Smoking Status: Never a Smoker Alcohol Use?: No Surgeries History of Surgeries: Yes Surgeries: Adenoidectomy, Orthopedic (L ankle repair), Tonsillectomy Respiratory History of Respiratory Disorde: No Cardiovascular History of Cardiac Disorders: No Neurological History of Neurological Disord: No Reproductive System : No Genitourinary History of Genitourinary Disor: No Gastrointestinal History of Gastrointestinal Di: Yes Gastrointestinal Disorders: Gall Bladder Disease Musculoskeletal History of Musculoskeletal Dis: Yes Musculoskeletal Disorders: Fractures Endocrine History of Endocrine Disorders: Yes Endocrine Disorders: Diabetes, Non-Insulin dep HEENT History of HEENT Disorders: No Loss of Vision: Denies Hearing Impairment: Denies Cancer History of Cancer: No Psychosocial History of Psychiatric Problem: No Integumentary History of Skin or Integumenta: No Family Medical History Significant Family History: Heart Disease, Cancer, Diabetes, Hypertension, Renal Disease Review of Systems-General Constitutional: No chills; diaphoresis, malaise EENTM: No blurred vision, No double vision, No eye pain Respiratory: No cough, No dyspnea on exertion Cardiovascular: No chest pain, No palpitations Gastrointestinal: RUQ, abdominal pain (RUQ), diarrhea, nausea, vomiting, other (epigastric pain; pain radiates to back) Genitourinary: No discharge, No dysuria Musculoskeletal: No back pain, No muscle stiffness, No muscle cramps Skin: No change in color, No change in hair/nails Psychiatric/Neurological: Denies Depressed, Denies Emotional Problems; Headache Physical Exam-General Problems Physical Exam General Appearance: mild distress, obese Eyes: Bilateral Eye PERRL, Bilateral Eye EOMI HEENT: pharynx normal; No scleral icterus (R), No scleral icterus (L) Neck: non-tender, supple Respiratory: chest non-tender, lungs clear, normal breath sounds (anterior posts only), no respiratory distress, no accessory muscle use Cardiovascular: no murmur, tachycardia Gastrointestinal: soft, no organomegaly, guarding (voluntary), tenderness, hernia (small umbilical) Rectal: deferred Extremities: no pedal edema, no calf tenderness, normal capillary refill Neurologic/Psychiatric: help desk intern II-XII nml as tested, alert, normal mood/affect, oriented x 3 Skin: normal color, diaphoresis (sweat beads on forehead and face) Lymphatic: no adenopathy (neck, axilla or groin) Data Review Radiology Radiology reading is not done. However, I see a stone in the gallbladder, wall is not thickened and CBD is less than 5mm. Assessment/Plan Assessment/Plan Assessment/Plan Acute cholecystitis with Cholelithiasis Nausea and Vomiting Diarrhea Leukocytosis Tachycardia Diabetes mellitus, non-insulin dependent Plan I believed pt has acute cholecystitis based on her pain and elevated WBC. She does not have elevated LFT's or acute signs on US; but the US can lag. I told the pt and her mother that I believe she will be helped by Laparoscopic cholecystectomy with fluoroscopic cholangiography, possible open and all indicated procedures. I did tell them that I could not promise 100% it would solve her pain, but most likely it would. We discussed risks and complications not limited to pain, bleeding, infection, scar, damage to bowel or bile duct and need for further procedure. When attempting to discuss possible options with patient and her mother, they stated they wished to move forward with surgery; because the other option of pain control and no surgery has not been working. Hopefully can send pt home today after surgery. Supervisory-Addendum Brief Verification & Attestation Participated in pt care: history, MDM, physical Personally performed: exam, history, MDM, supervision of care Care discussed with: Medical Student Procedures: n/a Verification and Attestation of Medical Student E/M Service A medical student performed and documented this service. I then reviewed and verified all information documented by the medical student and made modifications to such information, when appropriate. I personally performed a physical exam, medical decision making and then discussed any differences be tween the notes and made revisions as necessary to create one note. John Wayne , 03/15/22 , 14:22 JOANA ASHLEY Mar 15, 2022 11:48 JOHN WAYNE DO Mar 15, 2022 14:07
[2022-03-15] MEDS ORDERED: KETOROLAC 30 MG/ML VIAL IVP ONE (13:30)
[2022-03-15] MEDS ORDERED: LIDOCAINE/EPI 2% 1:100,00 (XYLOCAINE) 20 ML VIAL ONE (14:02)
[2022-03-15] MEDS ORDERED: proPOfol 200 MG/20 ML (DIPRIVAN) VIAL IV ONE ×2 (14:26→15:39)
[2022-03-15] MEDS ORDERED: ONDANSETRON 4 MG/2 ML (SDV) Z0FRAN ONE (14:26)
[2022-03-15] MEDS ORDERED: ROCURONIUM 10 MG/ML 5 ML SYRINGE IV ONE (14:26)
[2022-03-15] MEDS ORDERED: MIDAZOLAM 2 MG/2 ML (VERSED) VIAL ONE (14:26)
[2022-03-15] MEDS ORDERED: LIDOCAINE PF 2% 5 ML (XYLOCAINE) VIAL ONE (14:26)
[2022-03-15] MEDS ORDERED: SEVOFLURANE (ULTANE) 15 ML INHAL SOLN ONE ×2 (14:26→15:03)
--- NOTE | 2022-03-15 14:26 | Diagnostic Imaging Report ---
PROCEDURE: US Gallbladder. TECHNIQUE: Multiple real-time grayscale images were obtained over the right upper quadrant in various projections. INDICATION: Abdominal pain. COMPARISON: CT abdomen and pelvis with IV contrast 07/02/2021. FINDINGS: Increased echogenicity throughout the liver consistent with fatty infiltration. Normal hepatopetal flow in the main portal vein. No focal mass or fluid collection. Cholelithiasis. No gallbladder wall thickening or pericholecystic fluid. Negative sonographic Paez sign. The common bile duct measures 0.5 cm. The pancreas and aorta obscured by overlying bowel gas. The IVC is patent. The right kidney measures 10.5 cm. No right renal mass, cyst, shadowing stone or hydronephrosis. IMPRESSION: 1. Cholelithiasis without ultrasound findings of cholecystitis. 2. Hepatic steatosis. Dictated by: Dictated on workstation # [id number]
[2022-03-15] MEDS ORDERED: fentaNYL INJ 100 MCG/2 ML AMP IVP ONE (14:30)
[2022-03-15] MEDS ORDERED: LACTATED RINGERS 1,000 ML IV PRN (14:30)
[2022-03-15] MEDS ORDERED: morphine INJ 10 MG/ML 1ML (SYR OR VIAL) IVP ONE (14:30)
[2022-03-15] MEDS ORDERED: MEPERIDINE (DEMEROL) INJ 50 MG/ML IVP ONE (14:30)
[2022-03-15] MEDS ORDERED: CLINDAMYCIN 600 MG/4ML (CLEOCIN) VIAL ONE (14:38)
[2022-03-15] MEDS ORDERED: NS (IVPB) 50 ML ONE (14:39)
[2022-03-15] MEDS ORDERED: GLYCOPYRROLATE 0.2 MG/ML (ROBINUL) 2 ML VIAL ONE (15:47)
[2022-03-15] MEDS ORDERED: NEOSTIGMINE 3 MG/3 ML VIAL ONE (15:47)
--- NOTE | 2022-03-15 15:57 | Diagnostic Imaging Report ---
EXAMINATION: Fluoroscopy. INDICATION: Abdominal pain. Fluoroscopic assistance was provided for Dr. Sebastian during his laparoscopic cholangiogram. 10 seconds of fluoroscopy time was utilized. 44 spot films of the right upper quadrant were obtained. There has been opacification of the common bile duct via a cystic duct catheter. There is no defect within the duct to suggest choledocholithiasis and there is extension of the contrast into the small bowel. IMPRESSION: Fluoroscopic assistance was provided for Dr. Sebastian. Dictated by: Dictated on workstation # [id number]
--- NOTE | 2022-03-15 16:02 | Progress Note-Post Operative ---
Post-Operative Progess Note Surgeon (s)/Furniture Crater (s) Surgeon JOHN WAYNE DO Furniture Crater: ELEANOR Tenorio Pre-Operative Diagnosis Acute damion/damion Post-Operative Diagnosis same pending path Procedure & Operative Findings Date of Procedure 03/15/22 Procedure Performed/Findings PROCEDURE: Laparoscopic cholecystectomy with intraoperative cholangiogram. COMPLICATIONS: None. PROCEDURE: The patient was taken to the operating suite and was prepped and draped in sterile fashion. A surgical pause was performed. Just superior to the umbilicus, a 12 mm incision was made. Dissection was taken down to the fascia, which was then scored and grasped with a Pranav and the abdomen was then entered. A 0 Vicryl suture was placed in a [id number] fashion and a Andersen trocar was placed and secured. Pneumoperitoneum was achieved. A 5mm trochar place in the subxyphoid and 2 in the right upper quadrant. The gallbladder was noted to have adhesions to it, which usually indicates previous attacks. There did not appear to be a lot of erythema or edema. Gallbladder was grasped at the fundus and taken in the superior direction. Took down the adhesions with cautery and blunt dissection. Then grasped down at Gandhi's pouch and pulled in the infero-lateral direction. The cystic duct and cystic artery were then dissected out; artery was actually in front of the duct. Clip was placed on the distal portion of the cystic duct which was then partially transected. An arrow catheter was inserted into the duct. The cholangiogram was then performed. No filing defects and contrast made its way into the duodenum. Catheter removed. Clips were placed on proximal portion of the cystic duct and then the duct was then transected. Clips had already been placed along the proximal and distal portion of the cystic artery which was then transected. Hook cautery was used to dissect the gallbladder from the gallbladder fossa achieving hemostasis. The gall- bladder was placed in an Endobag and removed through the 12 mm trocar site. The abdomen was then reinspected. Copious amounts of irrigation were used to irrigate the abdomen and there were no signs of active bleeding. Hemostasis had been achieved. The 12 mm fascial defect was then closed with 0 Vicryl suture that had been placed in a [id number] fashion. The abdomen was then desufflated, the trocars were removed. The abdomen was then washed and dried. The skin was then closed using 4-0 Monocryl in a subcuticular fashion. The abdomen was washed and dried and Skin Affix was place over incisions. Patient tolerated the procedure well without any complications and was taken to the recovery room in stable condition. Anesthesia Type GET Estimated Blood Loss Estimated blood loss (mL): scant Specimens/Packing Specimens Removed GB and contents JOHN WAYNE DO Mar 15, 2022 16:02
[2022-03-15] MEDS ORDERED: ACHD5005 PO (16:03)
--- NOTE | 2022-03-15 16:04 | Discharge Inst-Surgical ---
Discharge Inst-Surgical Depart Medication/Instructions New, Converted or Re-Newed RX: Transmitted to Pharmacy Patient Instructions Follow up Appt: Make appointment for 1 week. [phone] Instructions: No lifting greater than 20 pounds. No strenuous activity. May shower in 24 hours, no tub bath or soaking. Use incentive spirometer at home as directed. No Smoking Skin/Wound Care: May remove bandages in am. You need to leave the Dermabond on incision it will fall off on it's own. Symptoms to Report: Appetite Changes, Extremity Discoloration, Numbness/Tingling, Swelling Increased, Bleeding Excessive, Eyesight Changes, Pain Increased, Urine Color Change, Constipation(Persistent), Fever over 101 degree F, Pain/Pressure in chest, Urinating Difficulty, Cough Up/Vomit Blood, Heart Beat Irreg/Pounding, Pain/Pressure in jaw, Cramps in feet or legs, Lightheadedness, Pain/Pressure in shoulder, Diarrhea(Persistent), Memory Changes Suddenly, Questions/Concerns, Weight gain consecutive days, Dizziness/Fainting, Nausea/Vomiting, Shortness of Breath, Weight gain over 2 pounds If questions or concerns contact your physician Or seek help at emergency department. Activity Activity as Tolerated: Yes Activity Instructions: Avoid Stress to Incision Driving Instructions: No Driving/Refer to Diet Discharge Diet: Avoid Fatty Foods, Low Fat/Low Cholesterol Diet After 24 Hours: Clear Liquid if Nauseous If Any Problems/Questions/Issu: Contact Your Physician, Go to Emergency Room Skin/Wound Care Infection Signs and Symptoms: Increased Redness, Foul Odor of Wound, Increased Drainage, Skin Itchy or Has a Rash, Increased Swelling, Temperature Above 101 F Wound Care Comment: heating pad to shoulder or neck tonight for pain Bathing Instructions: Shower Stitches/Lynn/Dermabond Dis: Dermabond Ice Pack: Ice On and Off Site JOHN WAYNE DO Mar 15, 2022 16:04
[2022-03-15] MEDS ORDERED: morphine INJ 10 MG/ML 1ML (SYR OR VIAL) ONE (16:39)
--- NOTE | 2022-03-23 07:38 | Anesthesia-General Post-Op ---
General Significant Intra-Op Events Notes postop addendum for general anesthesia on 03/15/22 at 1700 Patient Condition Mental Status/LOC: Same as Preop Cardiovascular: Satisfactory Nausea/Vomiting: Absent Respiratory: Satisfactory Pain: Controlled Complications: Absent Post Op Complications Complications None Follow Up Care/Instructions Patient Instructions None needed. Anesthesia/Patient Condition Patient Condition Patient is doing well, no complaints, stable vital signs, no apparent adverse anesthesia problems. No complications reported per nursing. ADRIAN HAYES PLEATING SUPERVISOR Mar 23, 2022 07:38
== END 2022-03-15 19:20 | disposition home or self-care (01) ==
LOC: EDUNIT# 23:57 → ER 03-15 → 4TH 03-15 01:39
PROVIDERS: ADMIT Surgery; ATTEND Surgery
DX: K80.00 Calculus of gallbladder with acute cholecystitis without obstruction (principal); E11.9 Type 2 diabetes mellitus without complications; E66.01 Morbid (severe) obesity due to excess calories; R00.0 Tachycardia, unspecified; Z68.43 Body mass index [BMI] 50.0-59.9, adult
CPT/HCPCS: 47563; 76000; 76705; 80053; 82947; 83690; 84703 ×2; 85025; 87081; 88304; 96361; 96372; 96374 ×2; 96375 ×2; 96376; 99284; G0378; 36415

== ENCOUNTER 2023-04-03 11:47 | Observation (INO) | payer OTHER ==
[~2023-04-03] VITALS: Ht 167 cm; Wt 138.4 kg
[~2023-04-03 11:47] MED LIST changes: +EMPA10TA PO
[2023-04-03] MEDS ORDERED: NS IV 1000 ML 1,000 ML IV STA ×2 (12:08→12:59)
[2023-04-03] MEDS ORDERED: cefTRIAXone IV/IM 1,000 MG in NS (IVPB) 50 ML IV STA (12:08)
--- NOTE | 2023-04-03 12:13 | ED Abdominal Pain ---
General Chief Complaint: Abdominal/GI Problems Stated Complaint: SIDE.AB PAIN Source of Information: Patient Exam Limitations: No Limitations (MARK HOWARD) History of Present Illness Date Seen by Provider: April 03, 2023 Time Seen by Provider: 12:10 Initial Comments Patient is a 23-year-old female who presents ED with right-sided abdominal pain. Pain started this past Wednesday. Pain is described as sharp and intermittent. Pain radiates from the back to the right sided abdomen. She has a history of cholecystectomy and ovarian cyst. She denies of any vomiting or diarrhea. She states she has some dysuria and increased urine urgency. She took ibuprofen last night without much improvement. Pain became worse this morning. She does have a history of spasming in her back according to mother at bedside. Denies history of kidney stones. History of urinary tract infection. She believes she has type II diabetic according to mom. Currently on Levemir. She reports subjective fever headache. Denies sore throat, cough, chest pain, neck pain, ear pain. Patient did take Azo this morning (MARK HOWARD) Allergies and Home Medications Allergies Coded Allergies: Penicillins (Verified Allergy, Mild, 08/05/09) Patient Home Medication List Home Medication List Reviewed: Yes (MARK HOWARD) Empagliflozin (Jardiance) 10 Mg Tablet, Unknown Dose PO, (Reported) Entered as Reported by: BABAK LI on 03/15/22 0023 Hydrocodone Bit/Acetaminophen (HYDROcodone/APAP 5 MG/325 MG TAB) 1 Tab Tab, 1 TAB PO Q8H PRN for PAIN-MODERATE (5-7) Prescribed by: JOHN WAYNE on 03/15/22 1604 Review of Systems Review of Systems Constitutional: No chills, No diaphoresis; fever, malaise, weakness EENTM: No Double Vision Respiratory: Denies Cough, Denies Orthopnea Cardiovascular: Denies Chest Pain Gastrointestinal: Abdominal Pain; Denies Diarrhea, Denies Nausea, Denies Vomiting Genitourinary: Denies Burning, Denies Discharge; Flank Pain, Pain, Urgency Musculoskeletal: back pain; No joint pain, No joint swelling, No muscle pain Skin: No change in color (MARK HOWARD) All Other Systems Reviewed Negative Unless Noted: Yes (MARK HOWARD) Past Nghaskg-Jzwzzj-Icwshe Hx Immunizations Up To Date Tetanus Booster (TDap): Less than 5yrs PED Vaccines UTD: Yes First/Initial COVID19 Vaccinat: no Second COVID19 Vaccination Hasmukh: no Third COVID19 Vaccination Date: no (MARK HOWARD) Seasonal Allergies Seasonal Allergies: No (MARK HOWARD) Past Medical History Surgery/Hospitalization HX: appy, left ankle, t/a, niddm Surgeries: Yes Adenoidectomy, Orthopedic, Tonsillectomy Respiratory: No Cardiac: No Neurological: No Reproductive Disorders: No Female Reproductive Disorders: Denies Genitourinary: No Gastrointestinal: Yes Gall Bladder Disease Musculoskeletal: Yes Fractures Endocrine: Yes Diabetes, Non-Insulin dep HEENT: No Loss of Vision: Denies Hearing Impairment: Denies Cancer: No Psychosocial: No Integumentary: No Blood Disorders: No Adverse Reaction/Blood Tranf: No (MARK HOWARD) Family Medical History Heart Disease, Cancer, Diabetes, Hypertension, Renal Disease (MARK HOWARD) Physical Exam Vital Signs Vital Signs - First Documented 04/03/23 11:59 Temp 37.9 Pulse 134 Resp 20 B/P (MAP) 170/100 (123) Pulse Ox 97 O2 Delivery Room Air (CAIN GAITAN MD) Vital Signs Capillary Refill : (MARK HOWARD) Height/Weight/BMI Height: 5'7.00" Weight: 270lbs. oz. 122.509442xi; 53.25 BMI Method:Stated General Appearance: WD/WN, no apparent distress HEENT: PERRL/EOMI, normal ENT inspection, TMs normal, pharynx normal Neck: non-tender, full range of motion, supple, normal inspection Respiratory: chest non-tender, lungs clear, normal breath sounds, no respiratory distress, no accessory muscle use Cardiovascular: no edema, no gallop, no JVD, tachycardia Gastrointestinal: normal bowel sounds, soft, no organomegaly, tenderness (Right upper and mid abdominal tenderness. 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, no motor/sensory deficits, alert, normal mood/affect, oriented x 3 Skin: normal color, warm/dry (MARK HOWARD) Focused Exam Lactate Level 04/03/23 12:24: Lactic Acid Level 1.39 (CAIN GAITAN MD) Lactic Acid Level Laboratory Tests Test 04/03/23 12:24 Lactic Acid Level 1.39 MMOL/L (0.50-2.00) (CAIN GAITAN MD) Progress/Results/Core Measures Results/Orders Lab Results Laboratory Tests Test 04/03/23 12:08 04/03/23 12:24 04/03/23 12:28 Range/Units Urine Color YELLOW Urine Clarity CLOUDY Urine pH 6.5 5-9 Urine Specific [place] 1.015 L 1.016-1.022 Urine Protein 1+ H NEGATIVE Urine Glucose (UA) 3+ H NEGATIVE Urine Ketones NEGATIVE NEGATIVE Urine Nitrite POSITIVE H NEGATIVE Urine Bilirubin NEGATIVE NEGATIVE Urine Urobilinogen 0.2 < = 1.0 MG/DL Urine Leukocyte Esterase 1+ H NEGATIVE Urine RBC (Auto) 3+ H NEGATIVE Urine RBC 10-25 H /HPF Urine WBC >100 H /HPF Urine Squamous Epithelial Cells 0-2 /HPF Urine Crystals NONE /LPF Urine Bacteria MODERATE H /HPF Urine Casts NONE /LPF Urine Mucus NEGATIVE /LPF Urine Culture Indicated YES Urine Test NEGATIVE NEGATIVE White Blood Count 24.9 H 4.3-11.0 10^3/uL Red Blood Count 5.12 H 3.80-5.11 10^6/uL Hemoglobin 13.8 11.5-16.0 g/dL Hematocrit 41 35-52 % Mean Corpuscular Volume 80 80-99 fL Mean Corpuscular Hemoglobin 27 25-34 pg Mean Corpuscular Hemoglobin Concent 34 32-36 g/dL Red Cell Distribution Width 13.0 10.0-14.5 % Platelet Count 399 130-400 10^3/uL Mean Platelet Volume 9.2 9.0-12.2 fL Immature Granulocyte % (Auto) 1 % Neutrophils (%) (Auto) 91 H 42-75 % Lymphocytes (%) (Auto) 5 L 12-44 % Monocytes (%) (Auto) 3 0-12 % Eosinophils (%) (Auto) 0 0-10 % Basophils (%) (Auto) 0 0-10 % Neutrophils # (Auto) 22.6 H 1.8-7.8 10^3/uL Lymphocytes # (Auto) 1.3 1.0-4.0 10^3/uL Monocytes # (Auto) 0.7 0.0-1.0 10^3/uL Eosinophils # (Auto) 0.1 0.0-0.3 10^3/uL Basophils # (Auto) 0.1 0.0-0.1 10^3/uL Immature Granulocyte # (Auto) 0.2 H 0.0-0.1 10^3/uL Neutrophils % (Manual) 81 % Lymphocytes % (Manual) 10 % Monocytes % (Manual) 3 % Eosinophils % (Manual) 0 % Basophils % (Manual) 0 % Band Neutrophils 6 % Blood Morphology Comment NORMAL Sodium Level 136 135-145 MMOL/L Potassium Level 3.9 3.6-5.0 MMOL/L Chloride Level 103 98-107 MMOL/L Carbon Dioxide Level 20 L 21-32 MMOL/L Anion Gap 13 5-14 MMOL/L Blood Urea Nitrogen 7 7-18 MG/DL Creatinine 0.75 0.60-1.30 MG/DL Estimat Glomerular Filtration Rate 114 BUN/Creatinine Ratio 9 Glucose Level 305 H 70-105 MG/DL Lactic Acid Level 1.39 0.50-2.00 MMOL/L Calcium Level 9.2 8.5-10.1 MG/DL Corrected Calcium 9.4 8.5-10.1 MG/DL Total Bilirubin 0.6 0.1-1.0 MG/DL Aspartate Amino Transf (AST/SGOT) 22 5-34 U/L Alanine Aminotransferase (ALT/SGPT) 27 0-55 U/L Alkaline Phosphatase 94 40-136 U/L Total Protein 7.0 6.4-8.2 GM/DL Albumin 3.8 3.2-4.5 GM/DL Lipase 8 8-78 U/L Beta-Hydroxybutyrate (Chem panel) 0.18 0.00-0.27 MMOL/L Glucometer 316 H 70-110 MG/DL (CAIN GAITAN MD) Medications Given in ED Current Medications Medications Dose Ordered Sig/Per Route Start Time Stop Time Status Last Admin Dose Admin Iohexol 100 ml ONCE ONCE IV 04/03/23 13:00 04/03/23 13:01 DC 04/03/23 13:16 100 ML Ketorolac Tromethamine 30 mg ONCE ONCE IVP 04/03/23 13:00 04/03/23 13:01 DC 04/03/23 13:25 30 MG Sodium Chloride 100 ml ONCE ONCE IV 04/03/23 13:00 04/03/23 13:01 DC 04/03/23 13:17 80 ML (CAIN GAITAN MD) Vital Signs/I&O 04/03/23 11:59 Temp 37.9 Pulse 134 Resp 20 B/P (MAP) 170/100 (123) Pulse Ox 97 O2 Delivery Room Air (CAIN GAITAN MD) Departure Communication (PCP) Reviewed previous ER visits, H&P, lab testing. History of ovarian cyst cholecystectomy. Complaining of right flank pain right-sided abdominal pain since Wednesday. Pain intermittent. Pain worse today. Patient with urinary symptoms. Rates pain 3 out of 10 on arrival. She was tachycardic and febrile. Sepsis protocol was initiated. Differential diagnosis cystitis, pyelonephritis, PID, nephrolithiasis, urolithiasis, sepsis. Urinalysis was positive for urinary tract infection. Blood cultures pending. Lactic acid was 1.39. Was started on a liter of fluid. She was given 1 g of Rocephin. White blood count 20, left shift, bands noted. Blood sugar was 316. She states she is currently on Levemir. Denies regular insulin. She was hypertensive but that did improve. She was given Toradol for fever and pain. CT abdomen and pelvis was ordered hepatomegaly, and a right ovary is displaced in the right lower quadrant with a dominant follicle cyst measuring 5.1 cm. Similar appearance to prior exam with decrease in size. No evidence of urolithiasis. No evidence of nephric stranding or abscess. Suspect early pyelonephritis secondary to location of pain, fever and elevated white blood count. due to the displaced ovary concerning for ovarian torsion however she does not have any severe pain at this time and or tenderness in her right lower quadrant. Ultrasound was ordered which was negative for ovarian torsion. Patient was discussed with Dr. Natarajan hospitalist who accept patient for IV antibiotics, IV fluids. She received a second liter of fluid. Heart rate initially was 135 improved to 118. Patient was discussed with family as they agree with plan of action. We will continue monitoring blood sugar. She was not given any insulin at this time. Doesnot appear in DKA with normal beta hydroxybutyrate, anion gap. (MARK HOWARD) Impression Primary Impression: Pyelonephritis Additional Impressions: Sepsis Hyperglycemia Disposition: ADMITTED INPATIENT Condition: Stable Admissions Decision to Admit Reason: Admit from ER (General) Decision to Admit/Date: April 03, 2023 Time/Decision to Admit Time: 13:52 (MARK HOWARD) Departure-Patient Inst. Referrals: [facility] [place] Primary Care Physician ATTENDING PHYSICIAN NOTE: I was physically present as attending physician in the emergency department during the care of this patient, but I was not directly involved in the decision making or delivery of care for this patient. (CAIN GAITAN MD) MARK HOWARD April 03, 2023 12:13 CAIN GAITAN MD April 03, 2023 19:26
[2023-04-03 12:19] LABS: BILIRUBIN,URINE NEGATIVE (NEGATIVE); CLARITY,URINE CLOUDY; COLOR,URINE YELLOW; GLUCOSE, URINE (UA) 3+ (NEGATIVE); KETONES,URINE NEGATIVE (NEGATIVE); LEUKOCYTE ESTERASE ,URINE 1+ (NEGATIVE); NITRITE,URINE POSITIVE (NEGATIVE); PH,URINE 6.5 (5-9); PROTEIN,URINE 1+ (NEGATIVE)
[2023-04-03 12:27] LABS: BACTERIA,URINE MODERATE /HPF; SQUAMOUS EPITHELIAL CELL,UR 0-2 /HPF; WBC,URINE >100 /HPF
[2023-04-03 12:32] LABS: BASOPHILS # (AUTO) 0.1 10^3/uL (0.0-0.1); BASOPHILS % (AUTO) 0 % (0-10); EOSINOPHILS # (AUTO) 0.1 10^3/uL (0.0-0.3); EOSINOPHILS % (AUTO) 0 % (0-10); HEMATOCRIT 41 % (35-52); HEMOGLOBIN 13.8 g/dL (11.5-16.0); LYMPHOCYTES # (AUTO) 1.3 10^3/uL (1.0-4.0); LYMPHOCYTES % (AUTO) 5 % (12-44); MEAN CORPUSCULAR HEMOGLOBIN 27 pg (25-34); MEAN CORPUSCULAR HGB CONC 34 g/dL (32-36); MEAN CORPUSCULAR VOLUME 80 fL (80-99); MEAN PLATELET VOLUME 9.2 fL (9.0-12.2); MONOCYTES # (AUTO) 0.7 10^3/uL (0.0-1.0); MONOCYTES % (AUTO) 3 % (0-12); NEUTROPHILS # (AUTO) 22.6 10^3/uL (1.8-7.8); NEUTROPHILS % (AUTO) 91 % (42-75); PLATELET COUNT 399 10^3/uL (130-400); WHITE BLOOD COUNT 24.9 10^3/uL (4.3-11.0)
[2023-04-03 12:42] LABS: ALBUMIN 3.8 GM/DL (3.2-4.5)
[2023-04-03 12:43] LABS: POTASSIUM 3.9 MMOL/L (3.6-5.0)
[2023-04-03 12:44] LABS: CALCIUM 9.2 MG/DL (8.5-10.1)
[2023-04-03 12:47] LABS: BILIRUBIN,TOTAL 0.6 MG/DL (0.1-1.0)
[2023-04-03 12:48] LABS: BAND NEUTROPHILS 6 %; BASOPHILS % (MANUAL) 0 %; EOSINOPHILS % (MANUAL) 0 %; LYMPHOCYTES % (MANUAL) 10 %; MONOCYTES % (MANUAL) 3 %; NEUTROPHILS % (MANUAL) 81 %; RBC MORPH NORMAL
[2023-04-03 12:49] LABS: CREATININE SERUM 0.75 MG/DL (0.60-1.30)
[2023-04-03] MEDS ORDERED: IOHEXOL 350 MG/ML 100 ML (OMNIPAQUE 350) VIAL IV ONE (13:00)
[2023-04-03] MEDS ORDERED: NS 100 ML (IVPB) BAG IV ONE (13:00)
[2023-04-03] MEDS ORDERED: KETOROLAC 30 MG/ML VIAL IVP ONE (13:00)
--- NOTE | 2023-04-03 13:26 | Diagnostic Imaging Report ---
EXAMINATION: CT abdomen and pelvis with intravenous contrast. TECHNIQUE: Multiple contiguous axial images were obtained through the abdomen and pelvis after the uneventful administration of intravenous contrast. All CT scans use one or more of the following dose optimizing techniques: automated exposure control, MA and/or KvP adjustment based on patient size and exam type or iterative reconstruction. HISTORY: Right-sided flank pain. Headache. COMPARISON: 07/02/2021. FINDINGS: The heart is unremarkable. The included lung bases are clear. There is hepatic steatosis with hepatomegaly. No focal hepatic lesions. The gallbladder is surgically absent. The portal vein is patent. The spleen, pancreas, adrenal glands, and kidneys have a normal appearance. There is no pathologically enlarged mesenteric or retroperitoneal adenopathy. The bowel loops are nondilated. There is no free fluid or free air. No acute osseous abnormalities. Ureters and bladder are grossly normal. The right ovary is displaced into the right lower quadrant with a dominant follicle/cyst measuring 5.1 cm. There is no free air, loculated collection, or adenopathy in the pelvis. IMPRESSION: 1. Hepatomegaly with hepatic steatosis. 2. The right ovary is displaced in the right lower quadrant with a dominant follicle/cyst measuring 5.1 cm. This appearance is similar to the prior exam with decrease in size in the dominant follicle/cyst. Dictated by: Dictated on workstation # [id number]
--- NOTE | 2023-04-03 16:58 | Diagnostic Imaging Report ---
PROCEDURE: US non-OB pelvis comp/trans. TECHNIQUE: Multiple realtime grayscale images were obtained of the pelvis in various projections, endovaginally. Transabdominal imaging was also performed. INDICATION: Prominent right ovarian cyst. Evaluate for torsion. COMPARISON: CT performed earlier the same date. FINDINGS: Transabdominal: The uterus and adnexa have an unremarkable transabdominal appearance. Transvaginal images were obtained for additional characterization. Transvaginal: The uterus is anteverted and measures 7.9 x 4.0 x 3.4 cm. The endometrial stripe measures 0.8 cm and has a normal appearance. Multiple nabothian cysts are present. The right ovary is displaced into the right lower quadrant and is only well seen on transabdominal imaging. The prominent cyst is seen in the right ovary measuring 5.0 x 4.4 x 5.3 cm. There is flow within the right ovary. The left ovary is nonvisualized due to overlying bowel gas. No adnexal masses. No free fluid is seen in the pelvis. IMPRESSION: 1. Dominant follicle/cyst in the right ovary which is displaced in the right upper quadrant. Flow is seen within the right ovary. 2. Nonvisualization of the left ovary due to overlapping bowel gas. 3. Scattered nabothian cysts. Dictated by: Dictated on workstation # [id number]
[2023-04-03] MEDS ORDERED: ALPRAZolam 0.5 MG (XANAX) TAB PO PRN (17:45)
[2023-04-03] MEDS ORDERED: MILK OF MAGNESIA 400 MG/5 ML 30 ML UDC PO PRN (17:45)
[2023-04-03] MEDS ORDERED: ONDANSETRON 4 MG (ZOFRAN) ORAL DISSOLVE TAB PO PRN (17:45)
[2023-04-03] MEDS ORDERED: CALCIUM CARBONATE 500 MG (TUMS) TAB.CHEW PO PRN (17:45)
[2023-04-03] MEDS ORDERED: ONDANSETRON 4 MG/2 ML (SDV) Z0FRAN IV PRN (17:45)
[2023-04-03] MEDS ORDERED: HYDROmorphone 2 MG/ML VIAL (DILAUDID) IV PRN (17:45)
[2023-04-03] MEDS ORDERED: ANTACID SUSP 30 ML UDC (MYLANTA) PO PRN (17:45)
[2023-04-03] MEDS ORDERED: MELATONIN 3 MG TABLET PO PRN (17:45)
[2023-04-03] MEDS ORDERED: BISACODYL 10 MG SUPP (DULCOLAX) PR PRN (17:45)
[2023-04-03] MEDS ORDERED: diphenhydrAMINE 50 MG/ML INJ (BENADRYL) IVP PRN (17:45)
[2023-04-03] MEDS ORDERED: diphenhydrAMINE 25 MG TAB (BENADRYL) PO PRN (17:45)
[2023-04-03] MEDS ORDERED: LACTULOSE SYRUP 10GM/15ML (ENULOSE) 30ML UDC PO PRN (17:45)
[2023-04-03] MEDS ORDERED: polyethylene glycoL POWDER 17 GM (MIRALAX) PACK PO PRN (17:45)
[2023-04-03 17:50] VITALS: BP 111/69
[2023-04-03] MEDS ORDERED: NS IV 1000 ML 1,000 ML ONE (17:53)
[2023-04-03] MEDS: NS IV 1000 ML 1,000 ML IV SCH (17:57)
[2023-04-03] MEDS ORDERED: ENOXAPARIN 40 MG/0.4 ML (LOVENOX) SYR SC SCH (18:00)
[2023-04-03] MEDS ORDERED: ACETAMINOPHEN 325 MG TABLET ONE (18:00)
[2023-04-03] MEDS: ACETAMINOPHEN 325 MG TABLET PO PRN (18:01)
[2023-04-03 19:05] VITALS: BP 117/72
[2023-04-03] MEDS: SENNOSIDES 8.6 MG (SENOKOT) TAB PO SCH (20:50)
[2023-04-03] MEDS: DOCUSATE SODIUM 100 MG (COLACE) CAP PO SCH (20:50)
[2023-04-03] MEDS: inSUlin ASPART (NovoLOG) 1 UNIT/0.01 ML (CHARGE PER UNIT) SC SCH (21:19)
[2023-04-03] MEDS: KETOROLAC 15 MG/ML VIAL IV PRN (21:19)
[2023-04-04 00:40] VITALS: BP 125/85
[2023-04-04] MEDS: NS IV 1000 ML 1,000 ML IV SCH ×4 (02:12→19:51)
[2023-04-04 04:20] VITALS: BP 125/82
[2023-04-04] MEDS: KETOROLAC 15 MG/ML VIAL IV PRN ×3 (05:05→19:51)
[2023-04-04] MEDS: inSUlin ASPART (NovoLOG) 1 UNIT/0.01 ML (CHARGE PER UNIT) SC SCH ×4 (05:15→21:31)
[2023-04-04 05:44] LABS: BASOPHILS # (AUTO) 0.1 10^3/uL (0.0-0.1); BASOPHILS % (AUTO) 1 % (0-10); EOSINOPHILS # (AUTO) 0.2 10^3/uL (0.0-0.3); EOSINOPHILS % (AUTO) 1 % (0-10); HEMATOCRIT 41 % (35-52); HEMOGLOBIN 13.2 g/dL (11.5-16.0); LYMPHOCYTES # (AUTO) 1.7 10^3/uL (1.0-4.0); LYMPHOCYTES % (AUTO) 13 % (12-44); MEAN CORPUSCULAR HEMOGLOBIN 27 pg (25-34); MEAN CORPUSCULAR HGB CONC 32 g/dL (32-36); MEAN CORPUSCULAR VOLUME 83 fL (80-99); MEAN PLATELET VOLUME 9.5 fL (9.0-12.2); MONOCYTES # (AUTO) 0.9 10^3/uL (0.0-1.0); MONOCYTES % (AUTO) 7 % (0-12); NEUTROPHILS # (AUTO) 10.7 10^3/uL (1.8-7.8); NEUTROPHILS % (AUTO) 78 % (42-75); PLATELET COUNT 317 10^3/uL (130-400); WHITE BLOOD COUNT 13.8 10^3/uL (4.3-11.0)
[2023-04-04 06:06] LABS: ALBUMIN 3.3 GM/DL (3.2-4.5); BILIRUBIN,TOTAL 0.5 MG/DL (0.1-1.0); CALCIUM 8.5 MG/DL (8.5-10.1); CREATININE SERUM 0.67 MG/DL (0.60-1.30); POTASSIUM 3.9 MMOL/L (3.6-5.0); TOTAL PROTEIN 6.3 GM/DL (6.4-8.2)
--- NOTE | 2023-04-04 07:02 | History & Physical-Hospitalist ---
History of Present Illness HPI/Chief Complaint CC: Sepsis from pyelonephritis HPI: This is a 23yoWF with h/o DM insulin dependent who presented to the ER with fever and flank pain and w/u revealed pyelonephritis so she was admitted for IVF and IV abx. Currently she is doing well and boyfriend is at the bedside. Source: patient, family Exam Limitations: no limitations Date Seen 04/04/23 Time Seen by a Provider: 11:00 Attending Physician [place] PCP Admitting Physician: Annie Natarajan DO Attending Physician: Annie Natarajan DO Referring Physician Date of Admission April 03, 2023 at 17:18 Home Medications & Allergies Home Medications Reviewed patient Home Medication Reconciliation performed by pharmacy medication reconciliations cardiovascular technician and/or nursing. Patients Allergies have been reviewed. Allergies Allergies Coded Allergies Penicillins (Verified Allergy, Mild, 08/05/09) Past Xvzsbps-Vrughx-Xstuho Hx Patient Social History Marrital Status: cohabiting Employed/Student: unemployed Tobacco Use?: No Smoking Status: Never a Smoker Use of E-Cig and/or Vaping dev: No Substance use?: No Alcohol Use?: No Pt feels they are or have been: No Immunizations Up To Date First/Initial COVID19 Vaccinat: no Second COVID19 Vaccination Hasmukh: no Tetanus Booster (TDap): Unknown PED Vaccines UTD: Yes Seasonal Allergies Seasonal Allergies: No Current Status status: No status: No Advance Directives: No Communicates: Verbally Primary Language: [place] Preferred Spoken Language: [place] Is interpretation needed?: No Sensory deficits: Vision impairment Implanted or Applied Medical D: Orthopedic hardware Past Medical History Surgeries: Adenoidectomy, Orthopedic, Tonsillectomy Gall Bladder Disease Fractures Diabetes, Non-Insulin dep Loss of Vision: Denies Hearing Impairment: Denies Blood Disorders: No Adverse Reaction/Blood Tranf: No Family Medical History Heart Disease, Cancer, Diabetes, Hypertension, Renal Disease Review of Systems Constitutional: see HPI, dizziness, fever, malaise, weakness Gastrointestinal: abdominal pain, loss of appetite, nausea, vomiting Physical Exam Physical Exam Vital Signs Vital Signs - First Documented 04/03/23 04/03/23 11:59 18:19 Temp 37.9 Pulse 134 Resp 20 B/P (MAP) 170/100 (123) Pulse Ox 97 O2 Delivery Room Air FiO2 21 Capillary Refill : Less Than 3 Seconds Height, Weight, BMI Height: 5'7.00" Weight: 270lbs. oz. 122.625128lm; 49.62 BMI Method:Stated General Appearance: No Apparent Distress, Obese Eyes: Right Eye Normal Inspection, Right Eye PERRL HEENT: PERRL/EOMI, Normal ENT Inspection, Pharynx Normal, Moist Mucous Membranes Neck: Full Range of Motion, Normal Inspection, Non Tender Respiratory: Chest Non Tender, Lungs Clear, Normal Breath Sounds, No Accessory Muscle Use, No Respiratory Distress Cardiovascular: Regular Rate, Rhythm, No Edema, No Gallop, No JVD, No Murmur, Normal Peripheral Pulses Gastrointestinal: Normal Bowel Sounds, No Organomegaly, No Pulsatile Mass, Non Tender, Soft Back: Normal Inspection, No CVA Tenderness, No Vertebral Tenderness Extremity: Normal Capillary Refill, Normal Inspection, Normal Range of Motion, Non Tender, No Calf Tenderness, No Pedal Edema Neurologic/Psychiatric: Alert, Oriented x3, No Motor/Sensory Deficits, Depressed Affect Skin: Normal Color, Warm/Dry Lymphatic: No Adenopathy Results Results/Procedures Labs Laboratory Tests 04/03/23 12:24 04/04/23 05:09 Patient resulted labs reviewed. Assessment/Plan Admission Diagnosis Assessment: Sepsis Acute pyelonephritis DM on insulin Obesity BMI 49 Plan: IV abx IVF Lovenox for DVT PPx Admission Status: Observation ANNIE NATARAJAN DO April 04, 2023 06:55
[2023-04-04 07:39] VITALS: BP 120/64
[2023-04-04] MEDS: DOCUSATE SODIUM 100 MG (COLACE) CAP PO SCH ×2 (08:33→21:00)
[2023-04-04] MEDS: SENNOSIDES 8.6 MG (SENOKOT) TAB PO SCH ×2 (08:33→21:00)
[2023-04-04] MEDS: ACETAMINOPHEN 325 MG TABLET PO PRN ×2 (08:34→18:05)
[2023-04-04] MEDS: ENOXAPARIN 40 MG/0.4 ML (LOVENOX) SYR SC SCH ×2 (08:35→21:10)
[2023-04-04 11:25] VITALS: BP 138/87
[2023-04-04] MEDS: cefTRIAXone IV/IM 1,000 MG in NS (IVPB) 50 ML IV SCH (13:29)
[2023-04-04 16:09] VITALS: BP 146/73
[2023-04-04 20:50] VITALS: BP 135/67
[2023-04-05] VITALS (8 sets, daily range): BP systolic 113–159; BP diastolic 58–83
[2023-04-05] MEDS: KETOROLAC 15 MG/ML VIAL IV PRN ×3 (03:35→17:50)
[2023-04-05] MEDS: NS IV 1000 ML 1,000 ML IV SCH ×2 (03:38→11:29)
[2023-04-05 06:16] LABS: BASOPHILS % (AUTO) 0 % (0-10); EOSINOPHILS # (AUTO) 0.1 10^3/uL (0.0-0.3); EOSINOPHILS % (AUTO) 1 % (0-10); HEMATOCRIT 36 % (35-52); HEMOGLOBIN 11.8 g/dL (11.5-16.0); LYMPHOCYTES # (AUTO) 2.2 10^3/uL (1.0-4.0); LYMPHOCYTES % (AUTO) 19 % (12-44); MEAN CORPUSCULAR HEMOGLOBIN 27 pg (25-34); MEAN CORPUSCULAR HGB CONC 33 g/dL (32-36); MEAN CORPUSCULAR VOLUME 80 fL (80-99); MEAN PLATELET VOLUME 9.2 fL (9.0-12.2); MONOCYTES # (AUTO) 0.7 10^3/uL (0.0-1.0); MONOCYTES % (AUTO) 6 % (0-12); NEUTROPHILS # (AUTO) 8.6 10^3/uL (1.8-7.8); NEUTROPHILS % (AUTO) 73 % (42-75); PLATELET COUNT 315 10^3/uL (130-400); WHITE BLOOD COUNT 11.8 10^3/uL (4.3-11.0)
[2023-04-05 06:45] LABS: BILIRUBIN,TOTAL 0.3 MG/DL (0.1-1.0); CREATININE SERUM 0.62 MG/DL (0.60-1.30); POTASSIUM 3.4 MMOL/L (3.6-5.0); TOTAL PROTEIN 5.8 GM/DL (6.4-8.2)
[2023-04-05] MEDS: inSUlin ASPART (NovoLOG) 1 UNIT/0.01 ML (CHARGE PER UNIT) SC SCH ×4 (06:53→20:36)
[2023-04-05] MEDS: ACETAMINOPHEN 325 MG TABLET PO PRN ×2 (07:57→15:22)
[2023-04-05] MEDS: DOCUSATE SODIUM 100 MG (COLACE) CAP PO SCH ×2 (07:57→21:07)
[2023-04-05] MEDS: SENNOSIDES 8.6 MG (SENOKOT) TAB PO SCH ×2 (07:57→21:07)
[2023-04-05] MEDS: ENOXAPARIN 40 MG/0.4 ML (LOVENOX) SYR SC SCH ×2 (07:58→20:35)
[2023-04-05] MEDS: cefTRIAXone IV/IM 1,000 MG in NS (IVPB) 50 ML IV SCH (12:44)
[2023-04-05] MEDS ORDERED: INSU100I30 SQ (13:42)
[2023-04-05] MEDS ORDERED: IBUP-2473 PO (13:42)
--- NOTE | 2023-04-05 15:18 | Progress Note ---
Subjective Subjective/Events-last exam Patient states that her back pain is better but having more of a LUNA. Tolerating PO diet and ambulation Review of Systems General: Fatigue Pulmonary: No Dyspnea, No Cough Cardiovascular: No: Chest Pain, Palpitations, Edema Gastrointestinal: Nausea; No: Vomiting, Abdominal Pain, Diarrhea, Constipation Neurological: Weakness Focused Exam Lactate Level 04/03/23 12:24: Lactic Acid Level 1.39 Objective Exam Last Set of Vital Signs Vital Signs Date Time Temp Pulse Resp B/P (MAP) Pulse Ox O2 Delivery O2 Flow Rate FiO2 04/05/23 11:17 36.4 81 18 127/71 (89) 95 Room Air 04/03/23 18:19 21 Capillary Refill : Less Than 3 Seconds I&O Intake and Output 04/05/23 00:00 Intake Total 3380 ml Balance 3380 ml Intake Oral 3380 ml # Voids 8 General: Alert, Oriented X3 Lungs: Clear to Auscultation, Normal Air Movement Heart: Regular Rate, No Murmurs Abdomen: Normal Bowel Sounds, Soft, No Tenderness, No Masses Extremities: No Edema, No Tenderness/Swelling Neuro: Normal Speech Results/Procedures Lab Laboratory Tests 04/04/23 15:45: Glucometer 216H 04/04/23 21:14: Glucometer 238H 04/05/23 06:05: White Blood Count 11.8H, Red Blood Count 4.44, Hemoglobin 11.8, Hematocrit 36, Mean Corpuscular Volume 80, Mean Corpuscular Hemoglobin 27, Mean Corpuscular Hemoglobin Concent 33, Red Cell Distribution Width 13.2, Platelet Count 315, Mean Platelet Volume 9.2, Immature Granulocyte % (Auto) 1, Neutrophils (%) (A uto) 73, Lymphocytes (%) (Auto) 19, Monocytes (%) (Auto) 6, Eosinophils (%) (Auto) 1, Basophils (%) (Auto) 0, Neutrophils # (Auto) 8.6H, Lymphocytes # (Auto) 2.2, Monocytes # (Auto) 0.7, Eosinophils # (Auto) 0.1, Basophils # (Auto) 0.0, Immature Granulocyte # (Auto) 0.1, Sodium Level 136, Potassium Level 3.4L, Chloride Level 107, Carbon Dioxide Level 20L, Anion Gap 9, Blood Urea Nitrogen 5L, Creatinine 0.62, Estimat Glomerular Filtration Rate 127, BUN/Creatinine Ratio 8, Glucose Level 226H, Calcium Level 8.0L, Corrected Calcium 8.8, Total Bilirubin 0.3, Aspartate Amino Transf (AST/SGOT) 75H, Alanine Aminotransferase (ALT/SGPT) 89H, Alkaline Phosphatase 78, Total Protein 5.8L, Albumin 3.0L 04/05/23 11:14: Glucometer 234H Microbiology 04/03/23 Blood Culture - Preliminary, Resulted Escherichia coli Susceptibility To Follow See Comments 04/03/23 Urine Culture - Final, Complete Escherichia coli Strep agalactiae Group B Mixed Bacterial Renetta See Comments Assessment/Plan Assessment/Plan (1) Sepsis Status: Resolved (2) Pyelonephritis Status: Acute Assessment & Plan: 04/05: WBC trending down, continue IV antibiotics (3) Type 2 diabetes mellitus treated with insulin Status: Chronic Assessment & Plan: 04/05: Increased Levemir as blood sugars have been trending up (4) Elevated LFTs (5) Hypokalemia Status: Acute Assessment & Plan: 04/05: Replaced and repeat in AM BRANDON URIBE MD April 05, 2023 15:18
[2023-04-05] MEDS ORDERED: RT-ALBUTEROL SULF 2.5 MG/3 ML PRE-MIX VIAL INH PRN (21:45)
[2023-04-06] MEDS: KETOROLAC 15 MG/ML VIAL IV PRN ×2 (00:39→09:25)
[2023-04-06 04:50] VITALS: BP 131/68
[2023-04-06 05:32] LABS: BASOPHILS # (AUTO) 0.1 10^3/uL (0.0-0.1); BASOPHILS % (AUTO) 1 % (0-10); EOSINOPHILS # (AUTO) 0.1 10^3/uL (0.0-0.3); EOSINOPHILS % (AUTO) 1 % (0-10); HEMATOCRIT 36 % (35-52); HEMOGLOBIN 11.9 g/dL (11.5-16.0); LYMPHOCYTES # (AUTO) 2.8 10^3/uL (1.0-4.0); LYMPHOCYTES % (AUTO) 22 % (12-44); MEAN CORPUSCULAR HEMOGLOBIN 27 pg (25-34); MEAN CORPUSCULAR HGB CONC 33 g/dL (32-36); MEAN CORPUSCULAR VOLUME 80 fL (80-99); MEAN PLATELET VOLUME 9.6 fL (9.0-12.2); MONOCYTES # (AUTO) 1.2 10^3/uL (0.0-1.0); MONOCYTES % (AUTO) 9 % (0-12); NEUTROPHILS # (AUTO) 8.4 10^3/uL (1.8-7.8); NEUTROPHILS % (AUTO) 66 % (42-75); PLATELET COUNT 382 10^3/uL (130-400); WHITE BLOOD COUNT 12.7 10^3/uL (4.3-11.0)
[2023-04-06 05:38] LABS: POTASSIUM 3.5 MMOL/L (3.6-5.0)
[2023-04-06 05:39] LABS: CALCIUM 8.6 MG/DL (8.5-10.1)
[2023-04-06 05:40] LABS: TOTAL PROTEIN 6.2 GM/DL (6.4-8.2)
[2023-04-06 05:42] LABS: BILIRUBIN,TOTAL 0.3 MG/DL (0.1-1.0)
[2023-04-06 05:44] LABS: CREATININE SERUM 0.69 MG/DL (0.60-1.30)
[2023-04-06] MEDS: inSUlin ASPART (NovoLOG) 1 UNIT/0.01 ML (CHARGE PER UNIT) SC SCH ×2 (05:47→11:38)
[2023-04-06 07:17] VITALS: BP 122/70
--- NOTE | 2023-04-06 08:03 | Diagnostic Imaging Report ---
INDICATION: Cough and shortness of breath Frontal chest obtained at 1118 p.m. compared to 09/12/2014. Heart is normal in size. There is mild central vascular prominence. There is no focal infiltrate or pneumothorax or pleural fluid. IMPRESSION: Mild central vascular congestion without focal infiltrate or pneumothorax or pleural fluid. Dictated by: Dictated on workstation # [id number]
[2023-04-06] MEDS: SENNOSIDES 8.6 MG (SENOKOT) TAB PO SCH (09:23)
[2023-04-06] MEDS: DOCUSATE SODIUM 100 MG (COLACE) CAP PO SCH (09:23)
[2023-04-06] MEDS: ENOXAPARIN 40 MG/0.4 ML (LOVENOX) SYR SC SCH (09:24)
[2023-04-06 11:28] VITALS: BP 139/83
--- NOTE | 2023-04-06 12:13 | Discharge Summary ---
Diagnosis/Chief Complaint Date of Admission April 03, 2023 at 17:18 Date of Discharge 04/06/23 Admission Diagnosis Admission Diagnosis See problem list Discharge Diagnosis See below Problems/Diagnosis: (1) Sepsis Status: Resolved Resolution Date/Time: 04/04/23 @ 15:26 (2) Pyelonephritis Assessment & Plan: 04/05: WBC trending down, continue IV antibiotics Status: Acute (3) Type 2 diabetes mellitus treated with insulin Assessment & Plan: 04/05: Increased Levemir as blood sugars have been trending up Status: Chronic (4) Elevated LFTs (5) Headache Qualifiers: Qualified Codes: R51.9 - Headache, unspecified Status: Acute (6) Hypokalemia Assessment & Plan: 04/05: Replaced and repeat in AM Status: Acute Discharge Summary-Simple/Stand Consultations Discharge Physical Examination Allergies: Coded Allergies: Penicillins (Verified Allergy, Mild, 08/05/09) semaglutide (Verified Allergy, Unknown, 04/05/23) Vitals & I&Os Vital Sign - Last 12Hours Date Time Temp Pulse Resp B/P (MAP) Pulse Ox O2 Delivery O2 Flow Rate FiO2 04/06/23 11:28 36.5 78 18 139/83 (101) 93 Room Air 04/05/23 21:36 21 Intake and Output 04/06/23 00:00 Intake Total 2210 ml Balance 2210 ml Hospital Course See final discharge diagnosis. Discharge Instructions to patient/family Please see electronic discharge instructions given to patient. Discharge Medications Reviewed and agree with Discharge Medication list on patient's Discharge Instruction sheet BRANDON URIBE MD April 06, 2023 12:13
[2023-04-06] MEDS ORDERED: ACHD5005 PO (12:17)
[2023-04-06] MEDS ORDERED: CIPR-225 PO (12:17)
[2023-04-06] MEDS ORDERED: INSU100V5 SQ (12:17)
--- NOTE | 2023-04-06 12:22 | Discharge Summary ---
Discharge [facility] Reconcile Patient Problems Problems Reviewed?: Yes Discharge Medications New, Converted or Re-Newed RX: Transmitted to Pharmacy New Medications: Ciprofloxacin HCl (Cipro) 500 Mg Tablet 500 MG PO BID for 5 Days, #10 TAB Hydrocodone/Acetaminophen (Hydrocodone-Acetamin 5-325 mg) 5 Mg-325 Mg Tablet 1 TAB PO Q6H PRN for PAIN-MODERATE (5-7), #20 TAB Insulin Determir (Levemir) 100 Unit/Ml Soln 15 UNIT SQ BID, #30 EA Continued Medications: Ibuprofen (Ibuprofen) 200 Mg Tablet 400 MG PO Q8H PRN for PAIN-MILD (1-4), TAB Discontinued Medications: Insulin Detemir (Levemir Flextouch) 100 Unit/Ml (3 Ml) Insuln.pen 10 UNIT SQ DAILY, EA LAST FILLED 09-22-2022 #5 PENS/150 [employer] SUPPLY Patient Instructions Goal/Follow Up Appt: 1-2 weeks with PCP Patient would like to establish with Meeta Greene Activity & Diet Discharge Diet: ADA Diet Activity as Tolerated: Yes BRANDON URIBE MD April 06, 2023 12:22
[2023-04-06] MEDS ORDERED: HYDR-4132 PO (19:27)
== END 2023-04-06 14:30 | disposition home or self-care (01) ==
LOC: EDUNIT# 11:47 → ER 11:50 → 4TH 17:18 → UNDOADMOB 17:18 → 4TH 17:44 → UNDODISOB 04-06 14:30
PROVIDERS: ADMIT Internal Medicine; ATTEND Family Medicine
DX: A41.9 Sepsis, unspecified organism (principal); N10 Acute pyelonephritis; E11.65 Type 2 diabetes mellitus with hyperglycemia; R94.5 Abnormal results of liver function studies; R51.9 Headache, unspecified; E87.6 Hypokalemia; Z79.4 Long term (current) use of insulin; Z28.310 Unvaccinated for COVID-19
CPT/HCPCS: 36415; 71045; 74177; 76830; 76856; 80053; 81000; 82010; 82947; 83605; 83690; 84703; 85007; 85025; 85027; 87040; 87077; 87088; 87186; 94640; 94760; 96361; 96366; 96372; 96376; G0378

== ENCOUNTER 2023-05-09 17:15 | Emergency (ER) | payer OTHER ==
[~2023-05-09] VITALS: Ht 167.7 cm; Wt 122.5 kg
[~2023-05-09 17:15] MED LIST changes: +CIPR-225 PO; +HYDR-4132 PO; +IBUP-2473 PO; +INSU100I30 SQ; +INSU100V5 SQ
[2023-05-09 17:29] LABS: BILIRUBIN,URINE NEGATIVE (NEGATIVE); COLOR,URINE YELLOW; GLUCOSE, URINE (UA) 3+ (NEGATIVE); KETONES,URINE NEGATIVE (NEGATIVE); LEUKOCYTE ESTERASE ,URINE 1+ (NEGATIVE); NITRITE,URINE NEGATIVE (NEGATIVE); PH,URINE 7.5 (5-9); PROTEIN,URINE 3+ (NEGATIVE)
[2023-05-09] MEDS ORDERED: inSUlin (REGULAR) HUMAN 1 UNIT/0.01 ML (CHARGE PER UNIT) IV STA (17:31)
[2023-05-09] MEDS ORDERED: KETOROLAC 15 MG/ML VIAL IVP STA (17:31)
[2023-05-09 17:34] LABS: CLARITY,URINE CLOUDY; RBC,URINE TNTC /HPF
[2023-05-09 17:39] LABS: BASOPHILS # (AUTO) 0.1 10^3/uL (0.0-0.1); BASOPHILS % (AUTO) 1 % (0-10); EOSINOPHILS # (AUTO) 0.2 10^3/uL (0.0-0.3); EOSINOPHILS % (AUTO) 1 % (0-10); HEMATOCRIT 42 % (35-52); HEMOGLOBIN 13.8 g/dL (11.5-16.0); LYMPHOCYTES # (AUTO) 3.9 10^3/uL (1.0-4.0); LYMPHOCYTES % (AUTO) 18 % (12-44); MEAN CORPUSCULAR HEMOGLOBIN 26 pg (25-34); MEAN CORPUSCULAR HGB CONC 33 g/dL (32-36); MEAN CORPUSCULAR VOLUME 81 fL (80-99); MONOCYTES # (AUTO) 1.2 10^3/uL (0.0-1.0); MONOCYTES % (AUTO) 6 % (0-12); NEUTROPHILS # (AUTO) 16.3 10^3/uL (1.8-7.8); NEUTROPHILS % (AUTO) 75 % (42-75); PLATELET COUNT 443 10^3/uL (130-400); WHITE BLOOD COUNT 21.8 10^3/uL (4.3-11.0)
--- NOTE | 2023-05-09 17:39 | ED General ---
General Chief Complaint: - Reproductive Stated Complaint: URINARY PAIN; RT FLANK PAIN Source of Information: Patient History of Present Illness Date Seen by Provider: May 09, 2023 Time Seen by Provider: 17:18 Initial Comments 23-year-old female presenting with complaints of painful urination and right flank pain. She reports having her symptoms start this morning. They progressed throughout the day. She denies having any nausea or vomiting and denies having a fever or chills. She states that she feels tired and rundown. She had last eaten around 1 or 2 PM. She has not done any checks on her blood s ugar. She states that she is in the middle of transitioning to a different primary care provider through the [facility]. She does take Levemir for her diabetes and takes it twice a day. She had similar symptoms at the beginning of March and was diagnosed with pyelonephritis and sepsis requiring admission to the hospital in [place]. She was concerned that might be developing again today so she came to the emergency department here in [place]. She has had symptoms worsening throughout the day. She has had her gallbladder removed but otherwise denies any other abdominal surgeries. She denies having any history of kidney stones. She did start her menstrual cycle on . This was her regular time to start her menstrual cycle. She d enies taking any other medications other than the Levemir twice a day for her diabetes. She reports having an allergy to penicillin and to metformin. She states the penicillin allergy was a rash when she was a child and the metformin caused severe GI upset. Timing/Duration: 12-24 Hours Severity: Moderate Modifying Factors: worse with Other (urination) Associated Systoms: No Chest Pain, No Cough, No Diaphoresis, No Fever/Chills, No Headaches, No Loss of Appetite; Malaise; No Nausea/Vomiting, No Rash, No Seizure, No Shortness of Air, No Syncope, No Weakness Allergies and Home Medications Allergies Coded Allergies: Penicillins (Verified Allergy, Mild, 08/05/09) metformin (Verified Allergy, Unknown, 05/09/23) semaglutide (Verified Allergy, Unknown, 04/05/23) Patient Home Medication List Home Medication List Reviewed: Yes Ciprofloxacin HCl (Cipro) 500 Mg Tablet, 500 MG PO BID Prescribed by: BRANDON URIBE on 04/06/23 1217 Hydrocodone/Acetaminophen (Hydrocodone-Acetamin 5-325 mg) 5 Mg-325 Mg Tablet, 1 TAB PO Q6H PRN for PAIN-MODERATE (5-7) Prescribed by: PASTOR RIVERA on 04/06/23 1359 Hydrocodone/Acetaminophen (Hydrocodone-Acetamin 5-300 mg) 5 Mg-300 Mg Tablet, 1 EACH PO Q6H Prescribed by: BRANDON URIBE on 04/06/23 1928 Ibuprofen (Ibuprofen) 200 Mg Tablet, 400 MG PO Q8H PRN for PAIN-MILD (1-4), (Reported) Entered as Reported by: AYLIN VILLAVICENCIO on 04/05/23 1342 Insulin Determir (Levemir) 100 Unit/Ml Soln, 15 UNIT SQ BID Prescribed by: BRANDON URIBE on 04/06/23 1217 Nitrofurantoin Macrocrystal (Nitrofurantoin) 100 Mg Capsule, 100 MG PO BID Prescribed by: EDILIA LAUGHLIN on 05/09/23 1837 Review of Systems Review of Systems Constitutional: No chills, No fever; malaise (and fatigue) EENTM: no symptoms reported Respiratory: no symptoms reported Cardiovascular: no symptoms reported Gastrointestinal: see HPI Genitourinary: see HPI : No LMP: May 06, 2023 Musculoskeletal: no symptoms reported Skin: no symptoms reported Psychiatric/Neurological: Anxiety Past [id number] Hx Immunizations Up To Date Tetanus Booster (TDap): Less than 5yrs PED Vaccines UTD: Yes First/Initial COVID19 Vaccinat: no Second COVID19 Vaccination Hasmukh: no Third COVID19 Vaccination Date: no Seasonal Allergies Seasonal Allergies: No Past Medical History Surgery/Hospitalization HX: appy, left ankle, t/a, niddm, cholecystectomy Surgeries: Yes Adenoidectomy, Gallbladder, Orthopedic, Tonsillectomy Respiratory: No Cardiac: No Neurological: No Reproductive Disorders: No Female Reproductive Disorders: Denies Genitourinary: No Gastrointestinal: Yes Gall Bladder Disease Musculoskeletal: Yes Fractures Endocrine: Yes Diabetes, Non-Insulin dep HEENT: No Loss of Vision: Denies Hearing Impairment: Denies Cancer: No Psychosocial: No Integumentary: No Blood Disorders: No Adverse Reaction/Blood Tranf: No Family Medical History Heart Disease, Cancer, Diabetes, Hypertension, Renal Disease Physical Exam Vital Signs Vital Signs - First Documented 05/09/23 17:30 Temp 37.0 Pulse 121 Resp 18 B/P (MAP) 171/90 (117) Pulse Ox 95 O2 Delivery Room Air Capillary Refill : Height, Weight, BMI Height: 5'7.00" Weight: 270lbs. oz. 122.642880sw; 49.62 BMI Method:Stated General Appearance: No Apparent Distress, Obese HEENT: PERRL/EOMI, Pharynx Normal Neck: Full Range of Motion, Normal Inspection, Non Tender, Supple Respiratory: Chest Non Tender, Lungs Clear, Normal Breath Sounds, No Accessory Muscle Use, No Respiratory Distress Cardiovascular: Normal Peripheral Pulses, Tachycardia Gastrointestinal: Normal Bowel Sounds, No Pulsatile Mass, Soft, Tenderness (right flank and suprapubic) Rectal: Deferred Back: No CVA Tenderness Extremity: Normal Capillary Refill, Normal Inspection, No Pedal Edema Neurologic/Psychiatric: Alert, Oriented x3 Skin: Normal Color, Warm/Dry Focused Exam Lactate Level 05/09/23 17:30: Lactic Acid Level 1.10 Lactic Acid Level Laboratory Tests Test 05/09/23 17:30 Lactic Acid Level 1.10 MMOL/L (0.50-2.00) Progress/Results/Core Measures Suspected Sepsis SIRS Temperature: Pulse: Respiratory Rate: Laboratory Tests 05/09/23 17:30: White Blood Count 21.8H Blood Pressure / Mean: 05/09/23 17:30: Lactic Acid Level 1.10 Laboratory Tests 05/09/23 17:30: Creatinine 0.64, Platelet Count 443H, Total Bilirubin 0.3 Results/Orders Lab Results Laboratory Tests Test 05/09/23 17:17 05/09/23 17:25 05/09/23 17:30 05/09/23 18:49 Range/Units Urine Color YELLOW Urine Clarity CLOUDY Urine pH 7.5 5-9 Urine Specific [place] 1.015 L 1.016-1.022 Urine Protein 3+ H NEGATIVE Urine Glucose (UA) 3+ H NEGATIVE Urine Ketones NEGATIVE NEGATIVE Urine Nitrite NEGATIVE NEGATIVE Urine Bilirubin NEGATIVE NEGATIVE Urine Urobilinogen 0.2 < = 1.0 MG/DL Urine Leukocyte Esterase 1+ H NEGATIVE Urine RBC (Auto) 3+ H NEGATIVE Urine RBC TNTC H /HPF Urine WBC /HPF Urine Crystals NONE /LPF Urine Bacteria /HPF Urine Casts NONE /LPF Urine Mucus NEGATIVE /LPF Urine Culture Indicated YES Glucometer 298 H 194 H 70-110 MG/DL White Blood Count 21.8 H 4.3-11.0 10^3/uL Red Blood Count 5.24 H 3.80-5.11 10^6/uL Hemoglobin 13.8 11.5-16.0 g/dL Hematocrit 42 35-52 % Mean Corpuscular Volume 81 80-99 fL Mean Corpuscular Hemoglobin 26 25-34 pg Mean Corpuscular Hemoglobin Concent 33 32-36 g/dL Red Cell Distribution Width 13.5 10.0-14.5 % Platelet Count 443 H 130-400 10^3/uL Mean Platelet Volume 9.0 9.0-12.2 fL Immature Granulocyte % (Auto) 1 % Neutrophils (%) (Auto) 75 42-75 % Lymphocytes (%) (Auto) 18 12-44 % Monocytes (%) (Auto) 6 0-12 % Eosinophils (%) (Auto) 1 0-10 % Basophils (%) (Auto) 1 0-10 % Neutrophils # (Auto) 16.3 H 1.8-7.8 10^3/uL Lymphocytes # (Auto) 3.9 1.0-4.0 10^3/uL Monocytes # (Auto) 1.2 H 0.0-1.0 10^3/uL Eosinophils # (Auto) 0.2 0.0-0.3 10^3/uL Basophils # (Auto) 0.1 0.0-0.1 10^3/uL Immature Granulocyte # (Auto) 0.1 0.0-0.1 10^3/uL Neutrophils % (Manual) 79 % Lymphocytes % (Manual) 15 % Monocytes % (Manual) 6 % Sodium Level 135 135-145 MMOL/L Potassium Level 4.3 3.6-5.0 MMOL/L Chloride Level 99 98-107 MMOL/L Carbon Dioxide Level 23 21-32 MMOL/L Anion Gap 13 5-14 MMOL/L Blood Urea Nitrogen 7 7-18 MG/DL Creatinine 0.64 0.60-1.30 MG/DL Estimat Glomerular Filtration Rate 126 BUN/Creatinine Ratio 11 Glucose Level 366 H 70-105 MG/DL Lactic Acid Level 1.10 0.50-2.00 MMOL/L Calcium Level 9.5 8.5-10.1 MG/DL Corrected Calcium 9.4 8.5-10.1 MG/DL Total Bilirubin 0.3 0.1-1.0 MG/DL Aspartate Amino Transf (AST/SGOT) 17 5-34 U/L Alanine Aminotransferase (ALT/SGPT) 22 0-55 U/L Alkaline Phosphatase 103 40-136 U/L C-Reactive Protein 7.29 H <0.50 MG/DL Total Protein 7.8 6.4-8.2 GM/DL Albumin 4.1 3.2-4.5 GM/DL Lipase 16 8-78 U/L My Orders Orders - EDILIA LAUGHLIN MD Ua Culture If Indicated (05/09/23 17:18) Urine Bedside (05/09/23 17:18) Comprehensive Metabolic Panel (05/09/23 17:29) Lipase (05/09/23 17:29) Ed Iv/Invasive Line Start (05/09/23 17:29) Cbc With Automated Diff (05/09/23 17:29) Blood Culture (05/09/23 17:29) Crp Fs (05/09/23 17:29) Lactic Acid Analyzer (05/09/23 17:29) Ns Iv 1000 Ml (Sodium Chloride 0.9%) (05/09/23 17:45) Ketorolac Injection (Toradol Injection) (05/09/23 17:31) Insulin (Regular) Human (Novolin R (Per (05/09/23 17:31) Accucheck Stat ONCE (05/09/23 17:33) Urine Culture (05/09/23 17:17) Manual Differential (05/09/23 17:30) Ceftriaxone Iv/Im (Rocephin Iv/Im) (05/09/23 17:52) Ed Iv/Invasive Line Start (05/09/23 18:16) Ns Iv 1000 Ml (Sodium Chloride 0.9%) (05/09/23 18:17) Vital Signs/I&O 05/09/23 05/09/23 17:30 18:52 Temp 37.0 Pulse 121 Resp 18 B/P (MAP) 171/90 (117) 134/64 Pulse Ox 95 O2 Delivery Room Air Capillary Refill : Point of Care Testing Finger Stick Blood Glucose: 298 Progress Note #1: Progress Note Potential diagnosis of pyelonephritis, cystitis, ovarian cyst, colitis, diverticulitis, sepsis, poorly controlled diabetes, noncompliance with treatment, renal colic. From review with the electronic medical records from her admission to [facility] she had concerns for pyelonephritis and sepsis when she was admitted April 05. She quickly responded to IV fluid hydration and antibiotics. I reviewed the notes from Dr. Uribe the [facility] hospitalist when patient was admitted. She could have a recurrence of this as well as she might have DKA since she has elevated glucose of 298 with accucheck obtained here in the ED. We will establish a peripheral IV access and send labs for complete blood count, comprehensive metabolic profile, CRP, lipase, blood cultures, lactic acid. Obtain urinalysis and bedside test. Advised patient that she may also require CT scan imaging if she had elevated white count or concerns for kidney stone or pyelonephritis off of her labs. Administer normal saline 1 L IV fluid bolus for hydration, Toradol or ketorolac 15 mg IV x1 for right flank pain. Regular insulin 10 units IV for her hyperglycemia. Progress Note #2: Time: 17:44 Progress Note Bedside test was negative. Her Accu-Chek was elevated at 298. Her urinalysis showed specific gravity of 1.0154 and 3+ protein and 3+ glucose. She had 1+ leukocyte esterase but no nitrites. There is 3+ blood on her urine dipstick as well. A culture was reflexed. Her white blood cell count was elevated to 21.8 thousand with hemoglobin of 13.8 and platelets of 443. Her initial heart rate was elevated to 120 so along with findings for UTI and elevated WBC count will start IV antibiotics for UTI in addition to IVF bolus for hydration. Will review urine culture from admit on April 03 to help guide antibiotic choice. She does not appear to be in DKA as she has no ketones in her urine and is not having nausea or vomiting. 1750 Urine culture from April 03 showed E coli that was sensitive to everything but ampicillin. Will administer Ceftriaxone 1 gm IV for findings of recurrent UTI today. Progress Note #3: Time: 18:11 Progress Note Comprehensive metabolic profile showed normal electrolytes with a sodium of 135, potassium 4.3, chloride 99, CO2 of 23 with anion gap of 13. Her BUN was 7 with a creatinine is 0.64. She did have a glucose of 366 on her comprehensive metabolic profile. Her lipase was normal at 16. Her lactic acid was not elevated at 1.1. She did have an elevated CRP to 7.29. Will proceed with ceftriaxone 1 g IV here in addition to normal saline IV fluids. Her white blood cell count is elevated to 21.8 and she is tachycardic but her differential on the white blood cell count was normal and did not show a left shift. She had 79% neutrophils. Her urine was not showing ketones to indicate DKA. Will reassess after her second bag of IV fluids and a gram of ceftriaxone. Hopefully she could be discharged on oral macrobid and advised to check with [facility] about helping to manage her blood sugar and diabetes better. Progress Note #4: Time: 18:45 Progress Note After IV fluids finished infusing patient's blood sugar was rechecked and it was down to 184. Her heart rate was down to 100 bpm. Her blood pressure was also improved down to 134/64. She was 100% oxygen saturation on room air. With her not having elevated lactic acid and responding well to antibiotics and IV fluids will continue with oral antibiotics and send a prescription for Macrobid to the pharmacy in [place]. Patient stated that she has to go to work on Wednesday in [place] and she will get the medicine [facility]. She was counseled on follow-up and return precautions. Advised she could continue to take Azo to help with the urinary pain and frequency. She could take ibuprofen and/or acetaminophen to try and help with her flank pain. Encourage fluids and hydration and avoiding increased sugar, carbonated or caffeinated drinks. Also advised to check with the [facility] clinic about trying to get better control of her diabetes and hyperglycemia. Departure Impression Primary Impression: Acute cystitis with hematuria Additional Impressions: Acute right flank pain Uncontrolled diabetes mellitus with hyperglycemia, with long-term current use of insulin Disposition: 01 HOME, SELF-CARE Condition: Improved Departure-Patient Inst. Decision time for Depature: 18:52 Referrals: [facility] (PCP/Family) Primary Care Physician Patient Instructions: High Blood Sugar, Adult ED, Flank Pain ED, Urinary Tract Infection, Adult ED, Diabetic Meal Planning , How to Prevent High Blood Sugar Emergencies in Diabetes Add. Discharge Instructions: Continue to stay well-hydrated to make sure you are drinking plenty of fluids and avoiding caffeinated and carbonated drinks as they could contribute to more urinary tract infections and dehydration. Take the full course of antibiotics to treat for the urinary tract infection. Follow-up with the [facility] clinic to have them help get better control of your diabetes and your high blood sugars. If having worsening symptoms or not improving then return or seek medical care for reevaluation All discharge instructions reviewed with patient and/or family. Voiced understanding. Scripts Nitrofurantoin Macrocrystal (Nitrofurantoin) 100 Mg Capsule 100 MG PO BID for UTI for 7 Days, #14 CAP 0 Refills Prov: EDILIA LAUGHLIN MD 05/09/23 EDILIA LAUGHLIN MD May 09, 2023 17:39
[2023-05-09] MEDS ORDERED: NS IV 1000 ML 1,000 ML IV SCH ×2 (17:45→18:17)
[2023-05-09] MEDS ORDERED: cefTRIAXone IV/IM 1,000 MG in NS (IVPB) 50 ML IV STA (17:52)
[2023-05-09 17:59] LABS: ALBUMIN 4.1 GM/DL (3.2-4.5); BILIRUBIN,TOTAL 0.3 MG/DL (0.1-1.0); CALCIUM 9.5 MG/DL (8.5-10.1); CREATININE SERUM 0.64 MG/DL (0.60-1.30); POTASSIUM 4.3 MMOL/L (3.6-5.0); TOTAL PROTEIN 7.8 GM/DL (6.4-8.2)
[2023-05-09 18:02] LABS: LYMPHOCYTES % (MANUAL) 15 %; MONOCYTES % (MANUAL) 6 %; NEUTROPHILS % (MANUAL) 79 %
[2023-05-09] MEDS ORDERED: NITR100C PO (18:37)
[2023-05-09 18:52] VITALS: BP 134/64
== END 2023-05-09 18:53 | disposition home or self-care (01) ==
LOC: EDUNIT# 17:15 → ER FS 17:16
DX: N30.01 Acute cystitis with hematuria (principal); E11.65 Type 2 diabetes mellitus with hyperglycemia; E66.9 Obesity, unspecified; R79.82 Elevated C-reactive protein (CRP); Z68.42 Body mass index [BMI] 45.0-49.9, adult; Z79.4 Long term (current) use of insulin; Z28.310 Unvaccinated for COVID-19; Z88.0 Allergy status to penicillin
CPT/HCPCS: 36415; 80053; 81000; 82947; 83605; 83690; 84703; 85007; 85027; 86141; 87040; 87077; 87088

== ENCOUNTER 2023-05-28 20:00 | Emergency (ER) | payer OTHER ==
[~2023-05-28 20:00] MED LIST changes: +NITR100C PO
[2023-05-28] MEDS ORDERED: NS IV 1000 ML 1,000 ML IV STA (20:09)
[2023-05-28] MEDS ORDERED: cefTRIAXone IV/IM 1,000 MG in NS (IVPB) 50 ML IV STA (20:10)
[2023-05-28 20:18] LABS: BASOPHILS # (AUTO) 0.1 10^3/uL (0.0-0.1); BASOPHILS % (AUTO) 1 % (0-10); EOSINOPHILS # (AUTO) 0.4 10^3/uL (0.0-0.3); EOSINOPHILS % (AUTO) 2 % (0-10); HEMATOCRIT 40 % (35-52); HEMOGLOBIN 13.1 g/dL (11.5-16.0); LYMPHOCYTES # (AUTO) 4.1 10^3/uL (1.0-4.0); LYMPHOCYTES % (AUTO) 19 % (12-44); MEAN CORPUSCULAR HEMOGLOBIN 26 pg (25-34); MEAN CORPUSCULAR HGB CONC 33 g/dL (32-36); MEAN CORPUSCULAR VOLUME 80 fL (80-99); MONOCYTES # (AUTO) 1.3 10^3/uL (0.0-1.0); MONOCYTES % (AUTO) 6 % (0-12); NEUTROPHILS # (AUTO) 15.7 10^3/uL (1.8-7.8); NEUTROPHILS % (AUTO) 72 % (42-75); PLATELET COUNT 515 10^3/uL (130-400); WHITE BLOOD COUNT 21.8 10^3/uL (4.3-11.0)
[2023-05-28 20:36] LABS: ALBUMIN 3.7 GM/DL (3.2-4.5); BILIRUBIN,TOTAL 0.3 MG/DL (0.1-1.0); CALCIUM 9.1 MG/DL (8.5-10.1); CREATININE SERUM 0.49 MG/DL (0.60-1.30); POTASSIUM 4.1 MMOL/L (3.6-5.0); TOTAL PROTEIN 7.6 GM/DL (6.4-8.2)
[2023-05-28] MEDS ORDERED: fentaNYL INJ 100 MCG/2 ML AMP IVP STA (20:49)
--- NOTE | 2023-05-28 20:54 | ED Integumentary General ---
General Chief Complaint: Bite-Animal/Human/Insect Stated Complaint: BITE ON BACK Nursing Triage Note: Pt complaining of a possible spider bite on her back that she noticed Wednesday. Pt states she was seen at a [place] [facility] and was prescribed antibiotics and started taking them last night. Source: patient History of Present Illness Date Seen by Provider: May 28, 2023 Time Seen by Provider: 20:34 Initial Comments 23-year-old female presenting with complaints of increasing pain and racing heart. She started having swelling and pain to an area on her back on Wednesday. She was concerned was a possible spider bite. She had been seen in the clinic and they prescribed antibiotics. She just started taking them last night and has only had 24 hours of the medication. She felt like the pain was worse and she felt like her heart was racing. She recently had sepsis in March and was concerned that she was going into sepsis again. She has had subjective fever and chills. She is very anxious. Timing/Duration: getting worse (Over the last 2 to 3 days) Severity: severe Location: torso (Right mid back) Possible Cause: no cause identified Associated Symptoms: No blisters, No change in skin texture; fever (Subjective); No flushing, No headache, No hives; malaise; No nasal congestion, No numbness, No pallor, No paresthesia, No sore throat, No swelling/mass/lumps, No tingling Allergies and Home Medications Allergies Coded Allergies: Penicillins (Verified Allergy, Mild, 08/05/09) metformin (Verified Allergy, Unknown, 05/09/23) semaglutide (Verified Allergy, Unknown, 04/05/23) Patient Home Medication List Home Medication List Reviewed: Yes Ciprofloxacin HCl (Cipro) 500 Mg Tablet, 500 MG PO BID Prescribed by: BRANDON URIBE on 04/06/23 1217 Hydrocodone/Acetaminophen (Hydrocodone-Acetamin 5-325 mg) 5 Mg-325 Mg Tablet, 1 TAB PO Q6H PRN for PAIN-MODERATE (5-7) Prescribed by: PASTOR RIVERA on 04/06/23 1359 Hydrocodone/Acetaminophen (Hydrocodone-Acetamin 5-300 mg) 5 Mg-300 Mg Tablet, 1 EACH PO Q6H Prescribed by: BRANDON URIBE on 04/06/23 1928 Ibuprofen (Ibuprofen) 200 Mg Tablet, 400 MG PO Q8H PRN for PAIN-MILD (1-4), (Reported) Entered as Reported by: AYLIN VILLAVICENCIO on 04/05/23 1342 Insulin Determir (Levemir) 100 Unit/Ml Soln, 15 UNIT SQ BID Prescribed by: BRANODN URIBE on 04/06/23 1217 Nitrofurantoin Macrocrystal (Nitrofurantoin) 100 Mg Capsule, 100 MG PO BID Prescribed by: EDILIA LAUGHLIN on 05/09/23 1837 Review of Systems Review of Systems Constitutional: see HPI Past Uqeytoz-Oetodc-Eoxwrs Hx Patient Social History Tobacco Use?: No Use of E-Cig and/or Vaping dev: No Substance use?: No Alcohol Use?: No Pt feels they are or have been: No Immunizations Up To Date Tetanus Booster (TDap): Less than 5yrs PED Vaccines UTD: Yes First/Initial COVID19 Vaccinat: no Second COVID19 Vaccination Hasmukh: no Third COVID19 Vaccination Date: no Seasonal Allergies Seasonal Allergies: No Past Medical History Surgery/Hospitalization HX: appy, left ankle, t/a, niddm, cholecystectomy Surgeries: Yes Adenoidectomy, Gallbladder, Orthopedic, Tonsillectomy Respiratory: No Cardiac: No Neurological: No Reproductive Disorders: No Female Reproductive Disorders: Denies Genitourinary: No Gastrointestinal: Yes Gall Bladder Disease Musculoskeletal: Yes Fractures Endocrine: Yes Diabetes, Non-Insulin dep HEENT: No Loss of Vision: Denies Hearing Impairment: Denies Cancer: No Psychosocial: No Integumentary: No Blood Disorders: No Adverse Reaction/Blood Tranf: No Family Medical History Heart Disease, Cancer, Diabetes, Hypertension, Renal Disease Physical Exam Vital Signs Vital Signs - First Documented 05/28/23 20:02 Temp 36.8 Pulse 120 Resp 20 B/P (MAP) 189/105 (133) Pulse Ox 100 O2 Delivery Room Air Capillary Refill : Less Than 3 Seconds General Appearance: mild distress, obese HEENT: PERRL/EOMI Cardiovascular: normal peripheral pulses, tachycardia Respiratory: chest non-tender, lungs clear, normal breath sounds, no respiratory distress, no accessory muscle use Extremities: normal range of motion, non-tender, normal capillary refill Neurologic/Psychiatric: alert, oriented x 3 Skin: warm/dry Skin Problem Location: torso (right mid back) Skin Problem Character: erythema, swelling, tenderness, warm, other (no fluctuance or drainage present on erythematous, warm slightly swollen area that is tender to the right mid back area) Progress/Results/Core Measures Results/Orders Lab Results Laboratory Tests Test 05/28/23 20:18 Range/Units White Blood Count 21.8 H 4.3-11.0 10^3/uL Red Blood Count 4.99 3.80-5.11 10^6/uL Hemoglobin 13.1 11.5-16.0 g/dL Hematocrit 40 35-52 % Mean Corpuscular Volume 80 80-99 fL Mean Corpuscular Hemoglobin 26 25-34 pg Mean Corpuscular Hemoglobin Concent 33 32-36 g/dL Red Cell Distribution Width 13.1 10.0-14.5 % Platelet Count 515 H 130-400 10^3/uL Mean Platelet Volume 9.0 9.0-12.2 fL Immature Granulocyte % (Auto) 1 % Neutrophils (%) (Auto) 72 42-75 % Lymphocytes (%) (Auto) 19 12-44 % Monocytes (%) (Auto) 6 0-12 % Eosinophils (%) (Auto) 2 0-10 % Basophils (%) (Auto) 1 0-10 % Neutrophils # (Auto) 15.7 H 1.8-7.8 10^3/uL Lymphocytes # (Auto) 4.1 H 1.0-4.0 10^3/uL Monocytes # (Auto) 1.3 H 0.0-1.0 10^3/uL Eosinophils # (Auto) 0.4 H 0.0-0.3 10^3/uL Basophils # (Auto) 0.1 0.0-0.1 10^3/uL Immature Granulocyte # (Auto) 0.2 H 0.0-0.1 10^3/uL Neutrophils % (Manual) 76 % Lymphocytes % (Manual) 16 % Monocytes % (Manual) 6 % Eosinophils % (Manual) 2 % Sodium Level 132 L 135-145 MMOL/L Potassium Level 4.1 3.6-5.0 MMOL/L Chloride Level 96 L 98-107 MMOL/L Carbon Dioxide Level 24 21-32 MMOL/L Anion Gap 12 5-14 MMOL/L Blood Urea Nitrogen 9 7-18 MG/DL Creatinine 0.49 L 0.60-1.30 MG/DL Estimat Glomerular Filtration Rate 135 BUN/Creatinine Ratio 18 Glucose Level 238 H 70-105 MG/DL Lactic Acid Level 0.89 0.50-2.00 MMOL/L Calcium Level 9.1 8.5-10.1 MG/DL Corrected Calcium 9.3 8.5-10.1 MG/DL Total Bilirubin 0.3 0.1-1.0 MG/DL Aspartate Amino Transf (AST/SGOT) 12 5-34 U/L Alanine Aminotransferase (ALT/SGPT) 12 0-55 U/L Alkaline Phosphatase 117 40-136 U/L C-Reactive Protein 15.56 H <0.50 MG/DL Total Protein 7.6 6.4-8.2 GM/DL Albumin 3.7 3.2-4.5 GM/DL Serum Test, Qualitative NEGATIVE NEGATIVE My Orders Orders - EDILIA LAUGHLIN MD Cbc With Automated Diff (05/28/23 20:09) Comprehensive Metabolic Panel (05/28/23 20:09) Blood Culture (05/28/23 20:09) Ed Iv/Invasive Line Start (05/28/23 20:09) Crp Fs (05/28/23 20:09) Lactic Acid Analyzer (05/28/23 20:09) Hcg,Qualitative Serum (05/28/23 20:09) Ns Iv 1000 Ml (Sodium Chloride 0.9%) (05/28/23 20:09) Ceftriaxone Iv/Im (Rocephin Iv/Im) (05/28/23 20:10) Manual Differential (05/28/23 20:18) Fentanyl Inj (Sublimaze Injection) (05/28/23 20:49) Rx-Tramadol Hcl (Rx-Ultram) (05/28/23 21:00) Medications Given in ED Current Medications Medications Dose Ordered Sig/Per Route Start Time Stop Time Status Last Admin Dose Admin Tramadol HCl 50 mg Q6H PRN PO 05/28/23 21:00 05/28/23 21:18 DC 05/28/23 21:12 50 MG Vital Signs/I&O 05/28/23 05/28/23 20:02 21:15 Temp 36.8 36.8 Pulse 120 99 Resp 20 18 B/P (MAP) 189/105 (133) 140/67 Pulse Ox 100 99 O2 Delivery Room Air Room Air Blood Pressure Mean: 133 Progress Progress Note #1: Progress Note Obtain peripheral IV access and administer normal saline 1 L IV fluid bolus for hydration to help with tachycardia. Obtain labs to look at complete blood count, comprehensive metabolic profile, blood cultures, lactic acid. Administer Rocephin 1 g IV for her potential sepsis and worsening cellulitis. Progress Note #2: Progress Note Labs did show an elevated white blood cell count of 21.8 with a normal differential. Her comprehensive metabolic panel did not show acute significant electrolyte abnormality to account for her pain. She did have an elevated glucose consistent with her fighting an infection and being under stress. Will recheck after fluids infuse and if still has heart rate over 100 will repeat bolus, otherwise discharge to home with return precautions. Continue taking antibiotics at home. Avoid heat and excessive exertion for the next 2-3 days to allow her body to fight the infection and heal. Push fluids and hydration. Check back with clinic if not improving by Wednesday or Wednesday Progress Note #3: Progress Note On recheck after fluids infused she had heart rate of 99. will discharge with plan as above. Departure Impression Primary Impression: Cellulitis of mid back region Additional Impression: Dehydration Disposition: HOME, SELF-CARE Condition: Improved Departure-Patient Inst. Decision time for Depature: 21:11 Referrals: [facility] [place] (PCP/Family) Primary Care Physician Patient Instructions: Dehydration, Adult ED, Cellulitis (Skin Infection), Adult ED Add. Discharge Instructions: Continue taking your antibiotics. May apply a warm pack or hot pack to the area for 10 to 15 minutes every few hours while awake to try and help increase the blood flow and antibiotic to the area as well as if it might have any infection that needs to drain this will help it to come to a head and drain if needed. Try to stay in cool indoors and avoid working or being in the heat so you are not putting more stress on your body as it tries to heal from the infection. Continue with Ibuprofen for pain and you could also take acetaminophen 650 mg every 4 hours as needed for pain. For this weekend use the Tramadol 50 mg every 6 hours as needed for severe pain Check back with clinic for continued concerns All discharge instructions reviewed with patient and/or family. Voiced understanding. Work/School Note: Work Release Form Date Seen in the Emergency Department: May 28, 2023 Return to Work: May 31, 2023 Restrictions: Return-No Fever (24hrs) EDILIA LAUGHLIN MD May 28, 2023 20:54
[2023-05-28 20:57] LABS: EOSINOPHILS % (MANUAL) 2 %; LYMPHOCYTES % (MANUAL) 16 %; MONOCYTES % (MANUAL) 6 %; NEUTROPHILS % (MANUAL) 76 %
[2023-05-28 21:15] VITALS: BP 140/67
== END 2023-05-28 21:18 | disposition home or self-care (01) ==
LOC: EDUNIT# 20:00 → ER FS 20:01
DX: L03.312 Cellulitis of back [any part except buttock and flank] (principal); E86.0 Dehydration; E11.9 Type 2 diabetes mellitus without complications; Z28.310 Unvaccinated for COVID-19; Z88.0 Allergy status to penicillin
CPT/HCPCS: 36415; 80053; 83605; 84703; 85007; 85027; 86141; 87040